=== PATIENT | female | born 1990 | race Caucasian/White ===

== ENCOUNTER → 2018-03-13 | Outpatient (CLI) | payer SELFPAY ==
[2018-03-13 18:20] LABS: A TYPE INFLUENZA AG NEGATIVE (NEGATIVE); B INFLUENZA AG NEGATIVE (NEGATIVE)
--- NOTE | 2018-03-13 18:38 | RADIOLOGY REPORT (SQ) ---
EXAM DESCRIPTION: CHEST 2 VIEWS COMPLETED DATE/TIME: 03/13/2018 6:15 pm REASON FOR STUDY: R05 COUGH COMPARISON: None. EXAM PARAMETERS: NUMBER OF VIEWS: two views TECHNIQUE: Digital Frontal and Lateral radiographic views of the chest acquired. RADIATION DOSE: NA LIMITATIONS: none FINDINGS: LUNGS AND PLEURA: No opacities, masses or pneumothorax. No pleural effusion. MEDIASTINUM AND HILAR STRUCTURES: No masses or contour abnormalities. HEART AND VASCULAR STRUCTURES: Heart normal size. No evidence for failure. BONES: No acute findings. HARDWARE: None in the chest. OTHER: No other significant finding. IMPRESSION: NO ACUTE RADIOGRAPHIC FINDING IN THE CHEST. TECHNICAL DOCUMENTATION: JOB ID: [id number] [employer]- All Rights Reserved Reading location - IP/workstation name: [email or web address]
== END ==
LOC: LAB 17:32
PROVIDERS: ATTEND Nurse Practitioner Family
DX: R50.9 Fever, unspecified (principal); R05 Cough
CPT/HCPCS: 71046; 87804

== ENCOUNTER 2018-05-31 16:02 | Emergency (ER) | payer OTHER ==
[2018-05-31] MEDS ORDERED: LIDOCAINE 4%/TETRACAINE 0.5%/EPI 0.18% 5 ML TOPICAL SOLN TOP ONE (19:00)
[2018-05-31] MEDS ORDERED: HYDROCODONE/ACETAMINOPHEN 5-325 MG TABLET PO ONE (19:00)
--- NOTE | 2018-05-31 19:01 | ER Document Report ---
ED Medical Screen (RME) - General Chief Complaint: Laceration Stated Complaint: KNEE INJURY Time Seen by Provider: 05/31/18 18:54 Mode of Arrival: Ambulatory Information source: Patient, Parent TRAVEL OUTSIDE OF THE [place] IN LAST 30 DAYS: No - HPI Patient complains to provider of: Knee pain Onset: Other - This 27-year-old female presented after falling onto her knee with a toy of her daughter's which stabbed her in the knee thereafter. She was able ambulate thereafter without any assistance, she had some pain but because the toy had stuck into her knee she was concerned it was more serious prompting her to seek care at the emergency room. - Related Data Allergies/Adverse Reactions: amoxicillin Allergy (Verified 05/31/18 16:03) Sulfa (Sulfonamide Antibiotics) Allergy (Verified 05/31/18 16:03) Past Medical History - General Information source: Patient - Social History Cigarette use (# per day): Yes Chew tobacco use (# tins/day): No Frequency of alcohol use: None Drug Abuse: None Review of Systems - Review of Systems -: Yes All other systems reviewed and negative Physical Exam - Vital signs Vitals: Temp Pulse Resp BP Pulse Ox 98.5 F 89 14 130/81 H 97 05/31/18 16:07 05/31/18 16:07 05/31/18 16:07 05/31/18 16:07 05/31/18 16:07 Interpretation: Normal - General General appearance: Appears well, Alert - HEENT Head: Normocephalic, Atraumatic Eyes: Normal Pupils: PERRL - Respiratory Respiratory status: No respiratory distress Chest status: Nontender Breath sounds: Normal Chest palpation: Normal - Cardiovascular Rhythm: Regular Heart sounds: Normal auscultation Murmur: No - Abdominal Inspection: Normal Distension: No distension Bowel sounds: Normal Tenderness: Nontender Organomegaly: No organomegaly - Back Back: Normal, Nontender - Extremities General upper extremity: Normal inspection, Nontender, Normal color, Normal ROM, Normal temperature Knee: Other - The lower extremities are symmetric, the hips have normal range of motion, the right knee demonstrates a slight area abraded just inferior to the patella horizontally with a small gouge which is 1 cm in length which does not penetrate the deep tissues. - Neurological Neuro grossly intact: Yes Cognition: Normal Orientation: AAOx4 Caitie Coma Scale Eye Opening: Spontaneous [place] Coma Scale Verbal: Oriented Caitie Coma Scale Motor: Obeys Commands Caitie Coma Scale Total: 15 Speech: Normal Motor strength normal: LUE, RUE, LLE, RLE Sensory: Normal - Psychological Associated symptoms: Normal affect, Normal mood - Skin Skin Temperature: Warm Skin Moisture: Dry Skin Color: Normal Course - Re-evaluation Re-evalutation: 27-year-old female with superficial abrasion to the patella of the right knee. Let was applied to this. Patient was given some narcotic analgesia. Thereafter in a well lit room the wound was copiously irrigated, the base was probed, there is no deep tissue violation, the depth was minimal. The patient was offered both sutures as well as skin glue. She opted for skin glue for ease and space. The wound was subsequently repaired. 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 Wrote her a prescription such that she would not have to revisit the emergency department if she developed some changes but that in case she were to need it to be filled she needed to be seen again. - Vital Signs Vital signs: Temp Pulse Resp BP Pulse Ox 99.0 F 68 16 105/67 98 05/31/18 20:44 05/31/18 20:44 05/31/18 20:44 05/31/18 20:44 05/31/18 20:44 Procedures - Laceration/Wound Repair Right Knee Time completed: 20:14 Wound length (cm): 1 Wound's Depth, Shape: Superficial Anesthetic type: 1% Lidocaine w/epi Wound explored: Clean, No foreign body removed Irrigated w/ Saline (mLs): 2,000 Wound Debrided: Minimal Wound Repaired With: Dermabond Doctor's Discharge - Discharge Clinical Impression: Laceration Knee injury Qualifiers: Encounter type: initial encounter Laterality: right Qualified Code(s): S89.91XA - Unspecified injury of right lower leg, initial encounter Fall Qualifiers: Encounter type: initial encounter Qualified Code(s): W19.XXXA - Unspecified fall, initial encounter Condition: Good Disposition: HOME, SELF-CARE Instructions: Laceration Care ([facility]), Soap Cleansing ([facility]) Additional Instructions: You were seen today in the emergency department for the cut to your right knee. You had evaluation including a physical exam. The laceration on your knee was repaired utilizing glue. This glue will fall off eventually on its own. Keep this dry for the next 24 hours. Then keep it covered with a bandage for the days thereafter. Use the antibiotic only if necessary. Prescriptions: Ibuprofen [Motrin 600 mg Tablet] 600 mg PO Q8HP PRN #90 tablet PRN Reason: Acetaminophen [8Hr Arthritis Pain] 650 mg PO Q6 #40 tablet.er Clindamycin HCl 300 mg PO TID #21 capsule Hydrocodone/Acetaminophen [[place] 5-325 mg Tablet] 1 tab PO Q8 PRN #4 tablet PRN Reason: Referrals: YASH ROSSI FNP-C [Primary Care Provider] - Follow up as needed
[2018-05-31 20:52] VITALS: BP 105/67
== END 2018-05-31 20:50 | disposition home or self-care (01) ==
LOC: ER 16:02
DX: S80.211A Abrasion, right knee, initial encounter (principal); M25.561 Pain in right knee; W00.0XXA Fall on same level due to ice and snow, initial encounter; F17.210 Nicotine dependence, cigarettes, uncomplicated; Z88.0 Allergy status to penicillin; Z88.2 Allergy status to sulfonamides; Z86.14 Personal history of Methicillin resistant Staphylococcus aureus infection
CPT/HCPCS: 99282; 12001; J3490

== ENCOUNTER 2018-09-10 11:16 | Emergency (ER) | payer OTHER ==
[2018-09-10] MEDS ORDERED: LIDOCAINE 2% VISCOUS SOLN 20 ML UDCUP PO ONE (11:53)
[2018-09-10] MEDS ORDERED: MAG HYDROX/AL HYDROX/SIMETH SUSP 30 ML UDCUP PO ONE (11:53)
[2018-09-10] MEDS ORDERED: ONDANSETRON HCL INJ/PF 4 MG/2 ML SDV IV ONE (11:53)
[2018-09-10] MEDS ORDERED: NORMAL SALINE 1000 ML 1,000 ML IV ONE (11:53)
[2018-09-10] MEDS ORDERED: METOCLOPRAMIDE HCL ORAL SOLN 10 MG/10 ML UDCUP PO ONE (11:53)
--- NOTE | 2018-09-10 12:00 | ER Document Report ---
ED General - General Chief Complaint: Epigastric Pain Stated Complaint: ABDOMINAL PAIN Time Seen by Provider: 09/10/18 11:49 Primary Care Provider: YASH ROSSI FNP-C [Primary Care Provider] - Follow up as needed TRAVEL OUTSIDE OF THE [place] IN LAST 30 DAYS: No - HPI Notes: Patient is a 27-year-old female with no significant past medical history who presents the emergency department complaining of epigastric abdominal pain with associated nausea and vomiting that began yesterday. Patient states the pain will radiate into her back. She has had decreased p.o. intake recently. She is otherwise urinating normally and having loose stool which is relatively normal for her. Patient has a history of a . P.o. intake does increase her epigastric pain. No other concerns or complaints at this time. Denies any headache, fever, neck pain, URI, sore throat, chest pain, palpitations, syncope, cough, shortness of breath, wheeze, dyspnea, urinary retention, dysuria, hematuria, or rash. - Related Data Allergies/Adverse Reactions: latex [Latex] Allergy (Severe, Verified 09/10/18 11:20) Severe swelling amoxicillin Allergy (Verified 09/10/18 11:20) Sulfa (Sulfonamide Antibiotics) Allergy (Verified 09/10/18 11:20) Past Medical History - Social History Smoking Status: Current Some Day Smoker Frequency of alcohol use: None Drug Abuse: None Family History: Arthritis, Malignancy, DM, Hyperlipidemia, Hypertension Patient has suicidal ideation: No Patient has homicidal ideation: No - Past Medical History Cardiac Medical History: Denies: Hx Coronary Artery Disease, Hx Heart Attack, Hx Hypertension Pulmonary Medical History: Reports: Hx Bronchitis - 05/2011 Denies: Hx Asthma, Hx COPD, Hx Pneumonia Neurological Medical History: Denies: Hx Cerebrovascular Accident, Hx Seizures Renal/ Medical History: Denies: Hx Kidney Stones, Hx Ovarian Cysts, Hx Peritoneal Dialysis, Hx Pelvic Inflammatory Disease Malignancy Medical History: Denies: Hx Breast Cancer, Hx Cervical Cancer, Hx Ov harish Cancer GI Medical History: Reports: Hx Gastroesophageal Reflux Disease. Denies: Hx Hiatal Hernia, Hx Ulcer Musculoskeletal Medical History: Denies Hx Arthritis Psychiatric Medical History: Reports: Hx Anxiety, Hx Attention Deficit Hyperactivity Disorder Denies: Hx Bipolar Disorder, Hx Depression, Hx Post Traumatic Stress Disorder, Hx Schizophrenia Past Surgical History: Reports: Hx Section - x2, Hx Myringotomy, Hx Tonsillectomy - Immunizations Immunizations up to date: Yes Hx Diphtheria, Pertussis, Tetanus Vaccination: Yes - 08/20/09 Review of Systems - Review of Systems -: Yes All other systems reviewed and negative Physical Exam - Vital signs Vitals: Temp Pulse Resp BP Pulse Ox 98.3 F 74 17 134/92 H 97 09/10/18 11:30 09/10/18 11:30 09/10/18 11:30 09/10/18 11:30 09/10/18 11:30 - Notes Notes: PHYSICAL EXAMINATION: GENERAL: Well-appearing, well-nourished and in no acute distress. HEAD: Atraumatic, normocephalic. EYES: Pupils equal round and reactive to light, extraocular movements intact, sclera anicteric, conjunctiva are normal. ENT: Nares patent and without discharge. oropharynx clear without exudates. No tonsilar hypertrophy or erythema. Moist mucous membranes. NECK: Normal range of motion, supple without lymphadenopathy LUNGS: Breath sounds clear to auscultation bilaterally and equal. No wheezes rales or rhonchi. HEART: Regular rate and rhythm without murmurs, rubs, gallops. ABDOMEN: Soft, nondistended abdomen. No guarding, no rebound. Normal bowel sounds present. No CVA tenderness bilaterally. + epigastric tenderness to palp. Musculoskeletal: FROM to passive/active. Strength 5+/5. Extremities: No cyanosis, clubbing, or edema b/l. Peripheral pulses 2+. Capillary refill less than 3 seconds. NEUROLOGICAL: Normal speech, normal gait. PSYCH: Normal mood, normal affect. SKIN: Warm, Dry, normal turgor, no rashes or lesions noted. Course - Re-evaluation Re-evalutation: 09/10/18 Patient is an afebrile, well-hydrated, 27-year-old female who presents to the emergency department with epigastric abdominal pain, unspecified. Vitals are acceptable without significant tachycardia, tachypnea, or hypoxia. PE is otherwise unremarkable. CBC, CMP, lipase, urinalysis, hCG unremarkable. Right upper quadrant ultrasound unremarkable. CXR unremarkable. Dr. Verdin also eval'd the CXR for free air (neg) and agrees with dispo. No further labs or imaging warranted. Patient is nontoxic-appearing and is able to tolerate p.o. Low suspicion/risk for acute appendicitis, bowel obstruction, acute cholecystitis, acute cholangitis, perforated diverticulitis, incarcerated hernia, pancreatitis, perforated ulcer, peritonitis, sepsis, pelvic inflammatory disease, ectopic , tubo-ovarian abscess, ovarian torsion, or other systemic emergent condition at this time. Patient is aware that her condition can change from initial presentation and she needs to monitor symptoms closely and seek medical attention if any acute changes. Conservative measures otherwise for symptoms. Recheck with your PCM in 2-3 days. Consider consult with a relationship advisor. Return to the ED with any worsening/concerning symptoms otherwise as reviewed in discharge. Patient is in agreement. - Vital Signs Vital signs: Temp Pulse Resp BP Pulse Ox 98.3 F 74 17 134/92 H 97 09/10/18 11:30 09/10/18 11:30 09/10/18 11:30 09/10/18 11:30 09/10/18 11:30 - Laboratory Result Diagrams: 09/10/18 12:12 09/10/18 12:12 Laboratory results interpreted by me: 09/10/18 17:32 Urine Protein 30 H Urine Ketones 80 H Urine Urobilinogen 2.0 H Discharge - Discharge Clinical Impression: Epigastric abdominal pain Condition: Stable Disposition: HOME, SELF-CARE Instructions: Evaluation of Upper Abdominal Pain ([facility]) Additional Instructions: Maintain adequate fluid and food intake [place] diet ([employer] Bananas, rice, apples, toast, etc Zofran as needed tylenol if needed Monitor for any worsening symptoms Make sure you are staying hydrated enough to urinate and have normal BM's Recheck with your PCM in 2-3 days Consider consult with Gastroenterology for ongoing/worsening symptoms Return to the ED with any worsening symptoms and/or development of fever, headache, chest pain, palpitations, syncope, shortness of breath, trouble breathing, abdominal pain, n/v/d, blood in stool/urine, weakness, or other worsening symptoms that are concerning to you. Prescriptions: Hydrocodone/Acetaminophen [[place] 5-325 mg Tablet] 1 tab PO BID PRN #6 tablet PRN Reason: Omeprazole 20 mg PO DAILY #30 tablet. Ondansetron [Zofran Odt 4 mg Tablet] 1 - 2 tab PO Q4H PRN #15 tab.rapdis PRN Reason: For Nausea/Vomiting Sucralfate [Carafate] 1 gm PO BID #100 ml Forms: Elevated Blood Pressure Referrals: YASH ROSSI FNP-C [Primary Care Provider] - Follow up as needed
[2018-09-10 13:03] LABS: ABSOLUTE LYMPHOCYTES (AUTO) 1.7 10^3/uL (0.5-4.7); ABSOLUTE MONOCYTES (AUTO) 0.3 10^3/uL (0.1-1.4); ABSOLUTE NEUT (AUTO) 6.2 10^3/uL (1.7-8.2); BASOPHILS % (AUTO) 0.2 % (0-2); EOSINOPHILS % (AUTO) 0.5 % (0-6); HEMATOCRIT 44.5 % (36.0-47.0); HEMOGLOBIN 15.5 g/dL (12.0-15.5); LYMPHOCYTES % (AUTO) 20.6 % (13-45); MEAN CORPUSCULAR HEMOGLOBIN 32.9 pg (27.0-33.4); MEAN CORPUSCULAR HGB CONC 34.7 g/dL (32.0-36.0); MEAN CORPUSCULAR VOLUME 95 fl (80-97); MONOCYTES % (AUTO) 3.4 % (3-13); PLATELET COUNT 296 10^3/uL (150-450); RED CELL DISTRIBUTION WIDTH 12.4 % (11.5-14.0); SEGMENTED NEUTROPHILS % (AUTO) 75.3 % (42-78); TOTAL CELLS COUNTED % (AUTO) 100 %; WHITE BLOOD COUNT 8.3 10^3/uL (4.0-10.5)
[2018-09-10 13:21] LABS: ALANINE AMINOTRANSFERASE 39 U/L (9-52); ALBUMIN 4.4 g/dL (3.5-5.0); ALKALINE PHOSPHATASE 71 U/L (38-126); ANION GAP 11 (5-19); ASPARTATE AMINO TRANSFERASE 24 U/L (14-36); BILIRUBIN,DIRECT 0.4 mg/dL (0.0-0.4); BILIRUBIN,TOTAL 0.8 mg/dL (0.2-1.3); BLOOD UREA NITROGEN 8 mg/dL (7-20); CALCIUM 9.8 mg/dL (8.4-10.2); CARBON DIOXIDE 23 mmol/L (22-30); CHLORIDE 106 mmol/L (98-107); GLUCOSE 86 mg/dL (75-110); LIPASE 76.5 U/L (23-300); POTASSIUM 4.3 mmol/L (3.6-5.0); SODIUM 139.8 mmol/L (137-145); TOTAL PROTEIN 7.7 g/dL (6.3-8.2)
[2018-09-10] MEDS ORDERED: KETOROLAC TROMETHAMINE INJ/PF 30 MG/1 ML SDV IV ONE (13:46)
[2018-09-10] MEDS ORDERED: FAMOTIDINE 20 MG TABLET PO ONE (13:47)
--- NOTE | 2018-09-10 16:19 | RADIOLOGY REPORT (SQ) ---
EXAM DESCRIPTION: U/S ABDOMEN LIMITED W/O DOP COMPLETED DATE/TIME: 09/10/2018 3:43 pm REASON FOR STUDY: epigastric pain, n/v COMPARISON: None. TECHNIQUE: Dynamic and static grayscale images acquired of the abdomen and recorded on PACS. Additio nal selected color Doppler and spectral images recorded. LIMITATIONS: None. FINDINGS: PANCREAS: No masses. No peripancreatic edema or fluid collections. LIVER: Echotexture is coarse with increased echogenicity consistent with fatty infiltration. LIVER VASCULATURE: Normal directional flow of the main portal vein and hepatic veins. GALLBLADDER: No stones. Normal wall thickness. No pericholecystic fluid. ULTRASOUND-DETECTED COREAS'S SIGN: Negative. INTRAHEPATIC DUCTS AND COMMON DUCT: CBD and intrahepatic ducts normal caliber. No filling defects. INFERIOR VENA CAVA: Normal flow. AORTA: No aneurysm. RIGHT KIDNEY: Normal size. Normal echogenicity. No solid or suspicious masses. No hydronephros is. No calcifications. PERITONEAL AND RIGHT PLEURAL SPACE: No ascites or effusions. OTHER: No other significant finding. IMPRESSION: FATTY INFILTRATION OF THE LIVER. OTHERWISE NORMAL RIGHT UPPER QUADRANT ULTRASOUND. TECHNICAL DOCUMENTATION: JOB ID: [id number] [employer]- All Rights Reserved Reading location - IP/workstation name: [email or web address]
[2018-09-10 18:16] LABS: AMORPHOUS SEDIMENT,URINE TRACE /HPF; APPEARANCE,URINE SLIGHTLY-CLOUDY; BILIRUBIN,URINE NEGATIVE (NEGATIVE); COLOR,URINE AMBER; GLUCOSE, URINE NEGATIVE (NEGATIVE); KETONES,URINE 80 mg/dL (NEGATIVE); LEUKOCYTE ESTERASE,URINE NEGATIVE (NEGATIVE); NITRITE,URINE NEGATIVE (NEGATIVE); PROTEIN,URINE 30 mg/dL (NEGATIVE); URINE SPECIFIC GRAVITY 1.028
[2018-09-10] MEDS ORDERED: MORPHINE SULFATE 10 MG/ML INJ IV ONE (18:54)
[2018-09-10 19:55] VITALS: BP 128/74
--- NOTE | 2018-09-10 20:05 | RADIOLOGY REPORT (SQ) ---
EXAM DESCRIPTION: XR CHEST 1 VIEW COMPLETED DATE/TME: 09/10/2018 18:54 CLINICAL HISTORY: 27 years, Female, epigastric pain Findings: Heart is not enlarged. Lungs are clear. No pneumothorax. No pleural effusions. IMPRESSION: No acute disease.
== END 2018-09-10 19:54 | disposition home or self-care (01) ==
LOC: ER 11:16
DX: R10.13 Epigastric pain (principal); R11.2 Nausea with vomiting, unspecified; M54.9 Dorsalgia, unspecified; R63.0 Anorexia; F17.200 Nicotine dependence, unspecified, uncomplicated
CPT/HCPCS: 99284; 96361; 96374; 96375; 36415; 83690; 85025; 81025; 80053; 81001; 71045; 76705; J3490; J1885; J2270; J2405; J7030

== ENCOUNTER 2019-07-03 10:51 | Emergency (ER) | payer SELFPAY ==
--- NOTE | 2019-07-03 12:34 | ER Document Report ---
ED Medical Screen (RME) - General Chief Complaint: Abscess Stated Complaint: ABSCESS Time Seen by Provider: 07/03/19 12:30 Primary Care Provider: YASH ROSSI FNP-C [Primary Care Provider] - Follow up as needed Notes: HPI: 28-year-old female presenting for an abscess in the left suprapubic region that began 3 to 4 days ago. States she had a fever last night. States that she is having increasing redness spreading from the area. Patient does have prior history of skin abscesses I have greeted and performed a rapid initial assessment of this patient. A comprehensive ED assessment and evaluation of the patient, analysis of test results and completion of the medical decision making process will be conducted by additional ED providers PHYSICAL EXAMINATION: With female medical front desk specialist present GENERAL: Well-appearing, well-nourished and in no acute distress. HEAD: Atraumatic, normocephalic. EYES: sclera anicteric, conjunctiva are normal. ENT: Moist mucous membranes. NECK: Normal range of motion LUNGS: Normal work of breathing HEART: 2+ radial pulses bilaterally ABD: limited by positioning for exam in triage. EXTREMITIES: no pitting or edema. No cyanosis. NEUROLOGICAL: No focal neurological deficits. Moves all extremities spontaneously and on command. PSYCH: Normal mood, normal affect. SKIN: Warm, Dry, normal turgor, indurated mildly tender area in the left suprapubic region with surrounding cellulitic change TRAVEL OUTSIDE OF THE [place] IN LAST 30 DAYS: No - Related Data Allergies/Adverse Reactions: latex [Latex] Allergy (Severe, Verified 07/03/19 12:26) Severe swelling amoxicillin Allergy (Verified 07/03/19 12:26) Sulfa (Sulfonamide Antibiotics) Allergy (Verified 07/03/19 12:26) Past Medical History - Social History Family history: Arthritis, Malignancy, DM, Hyperlipidemia, Hypertension - Past Medical History Cardiac Medical History: Denies: Hx Coronary Artery Disease, Hx Heart Attack, Hx Hypertension Pulmonary Medical History: Reports: Hx Bronchitis - 05/2011 Denies: Hx Asthma, Hx COPD, Hx Pneumonia Neurological Medical History: Denies: Hx Cerebrovascular Accident, Hx Seizures Renal/ Medical History: Denies: Hx Kidney Stones, Hx Ovarian Cysts, Hx Peritoneal Dialysis, Hx Pelvic Inflammatory Disease Malignancy Medical History: Denies: Hx Breast Cancer, Hx Cervical Cancer, Hx Ovarian Cancer GI Medical History: Reports: Hx Gastroesophageal Reflux Disease. Denies: Hx Hiatal Hernia, Hx Ulcer Musculoskeltal Medical History: Denies Hx Arthritis Psychiatric Medical History: Reports: Hx Anxiety, Hx Attention Deficit Hyperactivity Disorder Denies: Hx Bipolar Disorder, Hx Depression, Hx Post Traumatic Stress Disorder, Hx Schizophrenia Past Surgical History: Reports: Hx Section - x2, Hx Myringotomy, Hx Tonsillectomy - Immunizations Immunizations up to date: Yes Hx Diphtheria, Pertussis, Tetanus Vaccination: Yes - 08/20/09 Physical Exam - Vital signs Vitals: Temp Pulse Resp BP Pulse Ox 98.6 F 72 17 117/64 99 07/03/19 12:15 07/03/19 12:15 07/03/19 12:15 07/03/19 12:15 07/03/19 12:15 Course - Vital Signs Vital signs: Temp Pulse Resp BP Pulse Ox 98.6 F 72 17 117/64 99 07/03/19 12:15 07/03/19 12:15 07/03/19 12:15 07/03/19 12:15 07/03/19 12:15 Doctor's Discharge - Discharge Referrals: YASH ROSSI FNP-C [Primary Care Provider] - Follow up as needed
[2019-07-03] MEDS ORDERED: CLINDAMYCIN HCL 150 MG CAPSULE PO ONE (14:52)
[2019-07-03] MEDS ORDERED: HYDROCODONE/ACETAMINOPHEN 5-325 MG TABLET PO ONE (14:52)
--- NOTE | 2019-07-03 14:55 | ER Document Report ---
HPI - HPI Patient complains to provider of: Skin infection Time Seen by Provider: 07/03/19 12:30 Onset: Other - 4 days Onset/Duration: Worse Quality of pain: Sharp Pain Level: 4 Context: Patient states she shaved a week ago and developed a hair bump. Patient states that she attempted to squeeze on the area and did not have any drainage from lesion. Patient states area has gradually become more tender, swollen and erythematous. Patient reports fever yesterday of 101. No fever today. Associated Symptoms: Fever - Yesterday Exacerbated by: Movement Relieved by: Denies Similar symptoms previously: Yes Recently seen / treated by doctor: No - ROS ROS below otherwise negative: Yes Systems Reviewed and Negative: Yes All other systems reviewed and negative - CONSTITUTIONAL Constitutional: REPORTS: Fever, Chills - EENT EENT: DENIES: Sore Throat, Ear Pain, Eye problems - NEURO Neurology: DENIES: Headache - RESPIRATORY Respiratory: DENIES: Trouble Breathing, Coughing - GASTROINTESTINAL Gastrointestinal: DENIES: Nausea, Patient vomiting - URINARY Urinary: DENIES: Dysuria, Urgency, Frequency - REPRODUCTIVE LMP: [id number] Reproductive: DENIES: : - MUSCULOSKELETAL Musculoskeletal: DENIES: Extremity pain - DERM Skin Color: Erythema Notes: Abscess Past Medical History - General Information source: Patient - Social History Smoking Status: Former Smoker Chew tobacco use (# tins/day): No Frequency of alcohol use: None Drug Abuse: None Occupation: [employer] Family History: Arthritis, Malignancy, DM, Hyperlipidemia, Hypertension Patient has suicidal ideation: No Patient has homicidal ideation: No Pulmonary Medical History: Reports: Hx Bronchitis - 05/2011 GI Medical History: Reports: Hx Gastroesophageal Reflux Disease, Hx Irritable Bowel Psychiatric Medical History: Reports: Hx Anxiety, Hx Attention Deficit H yperactivity Disorder Past Surgical History: Reports: Hx Section - x2, Hx Myringotomy, Hx Tonsillectomy - Immunizations Immunizations up to date: Yes Hx Diphtheria, Pertussis, Tetanus Vaccination: Yes - 08/20/09 Vertical Provider Document - CONSTITUTIONAL Agree With Documented VS: Yes Exam Limitations: No Limitations General Appearance: WD/WN, No Apparent Distress - INFECTION CONTROL TRAVEL OUTSIDE OF THE [place] IN LAST 30 DAYS: No - HEENT HEENT: Atraumatic, Normocephalic - NECK Neck: Normal Inspection - RESPIRATORY Respiratory: Breath Sounds Normal, No Respiratory Distress - CARDIOVASCULAR Cardiovascular: Regular Rate, Regular Rhythm - GI/ABDOMEN Gastrointestinal: Abdomen Soft, Abdomen Non-Tender - BACK Back: Normal Inspection - MUSCULOSKELETAL/EXTREMETIES Musculoskeletal/Extremeties: MOUSTAPHA DAVIS - NEURO Level of Consciousness: Awake, Alert, Appropriate Motor/Sensory: No Motor Deficit - DERM Integumentary: Warm, Dry, Abscess - Erythema to left pubic area with central tender indurated lesion worrisome for abscess Course - Vital Signs Vital signs: Temp Pulse Resp BP Pulse Ox 98.6 F 72 17 117/64 99 07/03/19 12:15 07/03/19 12:15 07/03/19 12:15 07/03/19 12:15 07/03/19 12:15 Procedures - Incision and Drainage Left Groin Type: Simple Anesthetic type: 1% Lidocaine Blade size: 11 I&D procedure: Betadine prep applied Incision Method: Incision made by scalpel Amount/type of drainage: Moderate amount of purulent drainage Adult Front & Back picture: 1 - Incision for abscess Discharge - Discharge Clinical Impression: Abscess, Encounter for incision and drainage procedure Condition: Stable Disposition: HOME, SELF-CARE Instructions: Abscess ([facility]), Post Incision and Drainage, Clindamycin ([facility]), Oral Narcotic Medication ([facility]), Warm Packs ([facility]) Additional Instructions: Return immediately for any new or worsening symptoms Followup with your primary care provider, call tomorrow to make a followup appointment Apply warm compresses frequently to the area Prescriptions: Clindamycin HCl 300 mg PO QID #28 capsule Naproxen [Naprosyn 250 Nmg Tablet] 1 tab PO BID #14 tablet Hydrocodone/Acetaminophen [[place] 5-325 mg Tablet] 1 tab PO Q6 PRN #12 tablet PRN Reason: Forms: Return to Work Referrals: YASH ROSSI FNP-C [NURSE PRACTITIONER] - Follow up as needed
[2019-07-03 16:12] VITALS: BP 105/66
== END 2019-07-03 16:16 | disposition home or self-care (01) ==
LOC: ER 10:51
PROC: 0H97XZZ Drainage of Abdomen Skin, External Approach (ICD-10-PCS; principal; 2019-07-03)
DX: L02.214 Cutaneous abscess of groin (principal); L08.9 Local infection of the skin and subcutaneous tissue, unspecified; R50.9 Fever, unspecified; Z87.891 Personal history of nicotine dependence
CPT/HCPCS: 99283

== ENCOUNTER 2019-10-16 10:39 | Emergency (ER) | payer OTHER ==
[2019-10-16 11:23] LABS: ABSOLUTE LYMPHOCYTES (AUTO) 1.4 10^3/uL (0.5-4.7); ABSOLUTE MONOCYTES (AUTO) 0.5 10^3/uL (0.1-1.4); ABSOLUTE NEUT (AUTO) 6.7 10^3/uL (1.7-8.2); BASOPHILS % (AUTO) 0.2 % (0-2); EOSINOPHILS % (AUTO) 0.3 % (0-6); HEMOGLOBIN 14.9 g/dL (12.0-15.5); LYMPHOCYTES % (AUTO) 16.1 % (13-45); MEAN CORPUSCULAR HGB CONC 35.4 g/dL (32.0-36.0); MEAN CORPUSCULAR VOLUME 96 fl (80-97); MONOCYTES % (AUTO) 5.8 % (3-13); PLATELET COUNT 283 10^3/uL (150-450); RED BLOOD COUNT 4.38 10^6/uL (3.72-5.28); RED CELL DISTRIBUTION WIDTH 12.2 % (11.5-14.0); SEGMENTED NEUTROPHILS % (AUTO) 77.6 % (42-78); TOTAL CELLS COUNTED % (AUTO) 100 %; WHITE BLOOD COUNT 8.7 10^3/uL (4.0-10.5)
[2019-10-16 11:33] LABS: ALBUMIN 4.5 g/dL (3.5-5.0); ALKALINE PHOSPHATASE 70 U/L (38-126); ANION GAP 9 (5-19); ASPARTATE AMINO TRANSFERASE 30 U/L (14-36); BILIRUBIN,DIRECT 0.1 mg/dL (0.0-0.4); BILIRUBIN,TOTAL 1.2 mg/dL (0.2-1.3); BLOOD UREA NITROGEN 8 mg/dL (7-20); CALCIUM 9.5 mg/dL (8.4-10.2); CARBON DIOXIDE 26 mmol/L (22-30); CHLORIDE 106 mmol/L (98-107); GLUCOSE 100 mg/dL (75-110); POTASSIUM 4.1 mmol/L (3.6-5.0); TOTAL PROTEIN 7.4 g/dL (6.3-8.2)
--- NOTE | 2019-10-16 11:46 | ER Document Report ---
ED General - General Mode of Arrival: Ambulatory Information source: Patient TRAVEL OUTSIDE OF THE [place] IN LAST 30 DAYS: No <JOSEPH WHITE - Last Filed: 10/16/19 11:45> <POORNIMA LYNNE - Last Filed: 10/16/19 15:41> - General Chief Complaint: Diarrhea Stated Complaint: NAUSEA/VOMITING/DIARRHEA Time Seen by Provider: 10/16/19 11:02 - HPI Notes: Patient complains of abdominal pain diarrhea and vomiting. She states she has inflammatory bowel disease and has chronic diarrhea. However her pain is worse than usual and she does not usually have vomiting. The new symptoms have been present for 2 to 3 days. She states that she was doing a telehealth visit today with her primary care physician and they referred her to the emergency department. She denies any known covert exposures. No cough or congestion. No fevers. Patient's pain is intermittent. It is crampy. It is moderate in intensity. It radiates across her abdomen. (JOSEPH WHITE) - Related Data Allergies/Adverse Reactions: latex [Latex] Allergy (Severe, Verified 07/03/19 12:26) Severe swelling amoxicillin Allergy (Verified 07/03/19 12:26) Sulfa (Sulfonamide Antibiotics) Allergy (Verified 07/03/19 12:26) Past Medical History - General Information source: Patient - Social History Smoking Status: Never Smoker Chew tobacco use (# tins/day): No Frequency of alcohol use: None Drug Abuse: None Family History: Arthritis, Malignancy, DM, Hyperlipidemia, Hypertension Patient has homicidal ideation: No - Past Medical History Cardiac Medical History: Denies: Hx Coronary Artery Disease, Hx Heart Attack, Hx Hypertension Pulmonary Medical History: Reports: Hx Bronchitis - 05/2011 Denies: Hx Asthma, Hx COPD, Hx Pneumonia Neurological Medical History: Denies: Hx Cerebrovascular Accident, Hx Seizures Renal/ Medical History: Denies: Hx Kidney Stones, Hx Ovarian Cysts, Hx Peritoneal Dialysis, Hx Pelvic Inflammatory Disease Malignancy Medical History: Denies: Hx Breast Cancer, Hx Cervical Cancer, Hx Ovarian Cancer GI Medical History: Reports: Hx Gastroesophageal Reflux Disease, Hx Irritable Bowel. Denies: Hx Hiatal Hernia, Hx Ulcer Musculoskeletal Medical History: Denies Hx Arthritis Psychiatric Medical History: Reports: Hx Anxiety, Hx Attention Deficit Hyperactivity Disorder Denies: Hx Bipolar Disorder, Hx Depression, Hx Post Traumatic Stress Disorder, Hx Schizophrenia Past Surgical History: Reports: Hx Section - x2, Hx Myringotomy, Hx Tonsillectomy - Immunizations Immunizations up to date: Yes Hx Diphtheria, Pertussis, Tetanus Vaccination: Yes - 08/20/09 <JOSEPH WHITE - Last Filed: 10/16/19 11:45> Review of Systems - Review of Systems Constitutional: Malaise, Weakness. denies: Chills, Fever Cardiovascular: denies: Chest pain, Palpitations Respiratory: denies: Cough, Short of breath -: Yes All other systems reviewed and negative <JOSEPH WHITE - Last Filed: 10/16/19 11:45> Physical Exam - Vital signs Interpretation: Normal - General General appearance: Appears well, Alert - HEENT Head: Normocephalic, Atraumatic Eyes: Normal Pupils: PERRL - Respiratory Respiratory status: No respiratory distress Chest status: Nontender Breath sounds: Normal Chest palpation: Normal - Cardiovascular Rhythm: Regular Heart sounds: Normal auscultation Murmur: No - Abdominal Inspection: Normal Distension: No distension Bowel sounds: Normal Tenderness: Tender - Moderate diffuse tenderness with voluntary guarding Organomegaly: No organomegaly - Back Back: Normal, Nontender - Extremities General upper extremity: Normal inspection, Nontender, Normal color, Normal ROM, Normal temperature General lower extremity: Normal inspection, Nontender, Normal color, Normal ROM, Normal temperature, Normal weight bearing. No: Sydnie's sign - Neurological Neuro grossly intact: Yes Cognition: Normal Orientation: AAOx4 Caitie Coma Scale Eye Opening: Spontaneous Cait[place] Coma Scale Verbal: Oriented [place] Coma Scale Motor: Obeys Commands Caitie Coma Scale Total: 15 Speech: Normal Motor strength normal: LUE, RUE, LLE, RLE Sensory: Normal - Psychological Associated symptoms: Normal affect, Normal mood - Skin Skin Temperature: Warm Skin Moisture: Dry Skin Color: Normal <JOSEPH WHITE - Last Filed: 10/16/19 11:45> - Vital signs Vitals: Temp 98.6 F 10/16/19 11:27 Course - Laboratory Result Diagrams: 10/16/19 10:55 10/16/19 10:55 <JOSEPH WHITE - Last Filed: 10/16/19 11:45> - Laboratory Result Diagrams: 10/16/19 10:55 10/16/19 10:55 - Diagnostic Test Radiology reviewed: Reports reviewed <POORNIMA LYNNE - Last Filed: 10/16/19 15:41> - Re-evaluation Re-evalutation: 10/16/19 15:36 I assumed care of this patient at the beginning of my shift. In short this is a 28-year-old female with a history of IBS, who came in with typical symptoms but an increase in pain, which she does not have frequently. She was initially seen by Dr. White. She had laboratory investigations and medications as ordered through him. Ultrasound was pending. Ultrasound fails to reveal any acute process. Patient is feeling improved after 2 mg of IV morphine, states sh e does continue to feel nauseated. I did go ahead and order Zofran. She asked for a work excuse. I repeated her abdominal exam, she remains diffusely tender but she did not show any rebound or guarding, no peritoneal signs. She is to follow-up closely with primary care and GI. She is to return to the ED with worsening or new concerning symptoms of any sort. (POORNIMA LYNNE) - Vital Signs Vital signs: Temp Pulse Resp BP Pulse Ox 98.6 F 10/16/19 11:27 - Laboratory Laboratory results interpreted by me: 10/16/19 10:55 MCH 34.0 H - Diagnostic Test Radiology results interpreted by me: 10/16/19 15:37 Abdomen Ultrasound 10/16/19 11:11 IMPRESSION: No acute findings. (POORNIMA LYNNE) Discharge <JOSEPH WHITE - Last Filed: 10/16/19 11:45> <POORNIMA LYNNE - Last Filed: 10/16/19 15:41> - Discharge Clinical Impression: Abdominal pain Qualifiers: Abdominal location: generalized Qualified Code(s): R10.84 - Generalized abdominal pain Condition: Stable Disposition: HOME, SELF-CARE Instructions: Abdominal Pain ([facility]) Additional Instructions: You are being tested for COVID-19. Until your results have returned, you should quarantine yourself at home, and any other family members with which you live. Rest, stay well-hydrated. Follow-up with your primary care provider next week. If you need to return to the ED for further evaluation, which you should do in case of increased pain, fevers, vomiting, or any worsening, please notify them immediately that you are a person under investigation for coronavirus. Forms: Return to Work
[2019-10-16] MEDS ORDERED: MORPHINE SULFATE 10 MG/ML INJ IV ONE (13:59)
--- NOTE | 2019-10-16 14:39 | RADIOLOGY REPORT (SQ) ---
EXAM DESCRIPTION: U/S ABDOMEN LIMITED W/O DOP IMAGES COMPLETED DATE/TIME: 10/16/2019 2:15 pm REASON FOR STUDY: ruq pain COMPARISON: 09/10/2018 TECHNIQUE: Dynamic and static grayscale images acquired of the abdomen and recorded on PACS. Additio nal selected color Doppler and spectral images recorded. LIMITATIONS: None. FINDINGS: PANCREAS: No masses. Visualized pancreatic duct normal caliber. LIVER: No focal masses. Normal size. Mild increased echogenicity stable from prior study. LIVER VASCULATURE: Normal directional flow of the main portal vein and hepatic veins. GALLBLADDER: No stones. Normal wall thickness. No pericholecystic fluid. ULTRASOUND-DETECTED COREAS'S SIGN: Negative. INTRAHEPATIC DUCTS AND COMMON DUCT: CBD and intrahepatic ducts normal caliber. No filling defects. AORTA: No aneurysm. RIGHT KIDNEY: Normal size. Normal echogenicity. No solid or suspicious masses. No hydronephrosis. No calcifications. PERITONEAL AND RIGHT PLEURAL SPACE: No ascites or effusions. OTHER: No other significant findings. IMPRESSION: No acute findings. TECHNICAL DOCUMENTATION: JOB ID: [id number] 2010 [employer]- All Rights Reserved Reading location - IP/workstation name: [email or web address]
[2019-10-16] MEDS ORDERED: ONDANSETRON HCL INJ/PF 4 MG/2 ML SDV IV ONE (15:36)
[2019-10-16] MEDS ORDERED: ONDANSETRON ODT 4 MG TAB (6 TAB/ER DISP) PO PRN (16:47)
[2019-10-16 17:01] VITALS: BP 104/74
== END 2019-10-16 16:55 | disposition home or self-care (01) ==
LOC: ER 10:39
DX: R10.84 Generalized abdominal pain (principal); R19.7 Diarrhea, unspecified; R11.2 Nausea with vomiting, unspecified; K58.0 Irritable bowel syndrome with diarrhea; Z88.1 Allergy status to other antibiotic agents; Z88.2 Allergy status to sulfonamides; Z20.828 Contact with and (suspected) exposure to other viral communicable diseases
CPT/HCPCS: 99284; 96374; 96375; 36415; 84703; 85025; 87635; 80053; 76705; J2270; J2405

== ENCOUNTER 2020-01-13 14:54 | Emergency (ER) | payer OTHER ==
[2020-01-13 15:04] VITALS: BP 120/71
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
[2020-01-13] MEDS ORDERED: OXYCODONE-ACETAMINOPHEN 5-325 MG TABLET PO ONE (17:10)
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
--- NOTE | 2020-01-13 18:32 | RADIOLOGY REPORT (SQ) ---
EXAM DESCRIPTION: CERV SP 4 OR 5 VIEWS IMAGES COMPLETED DATE/TIME: 01/13/2020 5:37 pm REASON FOR STUDY: Pain to neck shoulder upper back left arm COMPARISON: None. NUMBER OF VIEWS: Five views. TECHNIQUE: AP, lateral, obliques and odontoid radiographic images acquired of the cervical spine. LIMITATIONS: None. FINDINGS: MINERALIZATION: Normal. ALIGNMENT: Anatomic. VERTEBRAE: Vertebral bodies of normal height. DISCS: No significant osteophytes or sclerosis. Disc height maintained. FORAMINA: No osteophytes or foraminal narrowing. LATERAL AND POSTERIOR ELEMENTS: Facets, lateral masses and spinous processes without significant find ings. HARDWARE: None in the spine. SOFT TISSUES: No masses or calcifications. Lung apices clear. OTHER: No other significant finding. IMPRESSION: NO SIGNIFICANT RADIOGRAPHIC FINDING IN THE CERVICAL SPINE. TECHNICAL DOCUMENTATION: JOB ID: [id number] 2010 [employer]- All Rights Reserved Reading location - IP/workstation name: [email or web address]
--- NOTE | 2020-01-13 18:33 | RADIOLOGY REPORT (SQ) ---
EXAM DESCRIPTION: CLAVICLE LEFT IMAGES COMPLETED DATE/TIME: 01/13/2020 5:37 pm REASON FOR STUDY: Pain to left clavicle COMPARISON: None. NUMBER OF VIEWS: Two views. TECHNIQUE: Frontal and angled images were acquired of the left clavicle. LIMITATIONS: None. FINDINGS: MINERALIZATION: Normal. BONES: No acute fracture or dislocation. No worrisome bone lesions. SOFT TISSUES: No obvious swelling or foreign body. OTHER: No other significant finding. IMPRESSION: NEGATIVE STUDY OF THE LEFT CLAVICLE. NO RADIOGRAPHIC EVIDENCE OF ACUTE INJURY. TECHNICAL DOCUMENTATION: JOB ID: [id number] 2010 [employer]- All Rights Reserved Reading location - IP/workstation name: [email or web address]
== END 2020-01-13 18:54 | disposition home or self-care (01) ==
LOC: ER 14:54
DX: S40.012A Contusion of left shoulder, initial encounter (principal); S40.022A Contusion of left upper arm, initial encounter; S16.1XXA Strain of muscle, fascia and tendon at neck level, initial encounter; S29.012A Strain of muscle and tendon of back wall of thorax, initial encounter; M25.522 Pain in left elbow; V49.40XA Driver injured in collision with unspecified motor vehicles in traffic accident, initial encounter; Z91.041 Radiographic dye allergy status; Z88.0 Allergy status to penicillin; Z88.2 Allergy status to sulfonamides
CPT/HCPCS: 36415; 72050; 84703; 99284

== ENCOUNTER 2020-05-02 17:11 | Emergency (ER) | payer SELFPAY ==
[2020-05-02] MEDS ORDERED: RINGERS SOLUTION,LACTATED 1,000 ML IV ONE ×2 (17:39→21:15)
[2020-05-02] MEDS ORDERED: ONDANSETRON HCL INJ/PF 4 MG/2 ML SDV IV ONE ×2 (17:39→21:15)
--- NOTE | 2020-05-02 17:41 | ER Document Report ---
ED Medical Screen (RME) - General Chief Complaint: Nausea/Vomiting/Diarrhea Stated Complaint: NAUSEA/VOMITING/COVID NEG Time Seen by Provider: 05/02/20 17:34 Mode of Arrival: Ambulatory Information source: Patient Notes: HPI; 9-year-old female past medical history significant for IBS presents to the emergency room with persistent nausea, vomiting and abdominal cramping for the past 6 days. Also complains of dysuria. States she started with multiple episodes of diarrhea 2 days ago. States she got tested for Covid on Monday received a negative result on Monday. Denies any COVID-19 exposure. States is unable to tolerate anything p.o. PE: Alert and oriented x3. Mild distress noted. Lungs: Clear to auscultation without rales, rhonchi, wheezes. Heart: Regular rate rhythm without murmurs, rubs, gallops. I have greeted and performed a rapid initial assessment of this patient. A comprehensive ED assessment and evaluation of the patient, analysis of test results and completion of the medical decision making process will be conducted by additional ED providers. I have specifically instructed the patient or family members with the patient to immediately return to any nursing staff should anything change in the patient's condition or with their chief complaint. TRAVEL OUTSIDE OF THE [place] IN LAST 30 DAYS: No - Related Data Allergies/Adverse Reactions: latex [Latex] Allergy (Severe, Verified 05/02/20 17:33) Severe swelling amoxicillin Allergy (Verified 05/02/20 17:33) Sulfa (Sulfonamide Antibiotics) Allergy (Verified 05/02/20 17:33) Past Medical History - Social History Family history: Arthritis, Malignancy, DM, Hyperlipidemia, Hypertension - Past Medical History Cardiac Medical History: Denies: Hx Coronary Artery Disease, Hx Heart Attack, Hx Hypertension Pulmonary Medical History: Reports: Hx Bronchitis - 05/2011 Denies: Hx Asthma, Hx COPD, Hx Pneumonia Neurological Medical History: Denies: Hx Cerebrovascular Accident, Hx Seizures Renal/ Medical History: Denies: Hx Kidney Stones, Hx Ovarian Cysts, Hx Peritoneal Dialysis, Hx Pelvic Inflammatory Disease Malignancy Medical History: Denies: Hx Breast Cancer, Hx Cervical Cancer, Hx Ovarian Cancer GI Medical History: Reports: Hx Gastroesophageal Reflux Disease, Hx Irritable Bowel. Denies: Hx Hiatal Hernia, Hx Ulcer Musculoskeltal Medical History: Denies Hx Arthritis Psychiatric Medical History: Reports: Hx Anxiety, Hx Attention Deficit Hyperactivity Disorder Denies: Hx Bipolar Disorder, Hx Depression, Hx Post Traumatic Stress Disorder, Hx Schizophrenia Past Surgical History: Reports: Hx Section - x2, Hx Myringotomy, Hx Tonsillectomy - Immunizations Immunizations up to date: Yes Hx Diphtheria, Pertussis, Tetanus Vaccination: Yes - 08/20/09 Physical Exam - Vital signs Vitals: Temp Pulse Resp BP Pulse Ox 98.3 F 91 16 130/68 H 96 05/02/20 17:13 05/02/20 17:13 05/02/20 17:13 05/02/20 17:13 05/02/20 17:13 Course - Vital Signs Vital signs: Temp Pulse Resp BP Pulse Ox 98.3 F 91 16 130/68 H 96 05/02/20 17:13 05/02/20 17:13 05/02/20 17:13 05/02/20 17:13 05/02/20 17:13
[2020-05-02 18:36] LABS: ABSOLUTE EOSINOPHILS # (AUTO) 0.1 10^3/uL (0.0-0.6); ABSOLUTE LYMPHOCYTES (AUTO) 1.6 10^3/uL (0.5-4.7); ABSOLUTE MONOCYTES (AUTO) 0.4 10^3/uL (0.1-1.4); ABSOLUTE NEUT (AUTO) 4.7 10^3/uL (1.7-8.2); BASOPHILS % (AUTO) 0.3 % (0-2); HEMATOCRIT 43.5 % (36.0-47.0); HEMOGLOBIN 14.9 g/dL (12.0-15.5); LYMPHOCYTES % (AUTO) 23.6 % (13-45); MEAN CORPUSCULAR HEMOGLOBIN 33.4 pg (27.0-33.4); MEAN CORPUSCULAR HGB CONC 34.3 g/dL (32.0-36.0); MEAN CORPUSCULAR VOLUME 97 fl (80-97); PLATELET COUNT 274 10^3/uL (150-450); RED BLOOD COUNT 4.46 10^6/uL (3.72-5.28); SEGMENTED NEUTROPHILS % (AUTO) 69.1 % (42-78); TOTAL CELLS COUNTED % (AUTO) 100 %; WHITE BLOOD COUNT 6.8 10^3/uL (4.0-10.5)
[2020-05-02 18:44] LABS: APPEARANCE,URINE CLOUDY; BILIRUBIN,URINE NEGATIVE (NEGATIVE); COLOR,URINE AMBER; GLUCOSE, URINE NEGATIVE (NEGATIVE); KETONES,URINE TRACE mg/dL (NEGATIVE); LEUKOCYTE ESTERASE,URINE LARGE (NEGATIVE); NITRITE,URINE NEGATIVE (NEGATIVE); PROTEIN,URINE 30 mg/dL (NEGATIVE); URINE SPECIFIC GRAVITY 1.015; UROBILINOGEN,URINE NEGATIVE mg/dL (<2.0)
[2020-05-02 18:48] LABS: ALBUMIN 4.6 g/dL (3.5-5.0); ALKALINE PHOSPHATASE 53 U/L (38-126); ANION GAP 7 (5-19); ASPARTATE AMINO TRANSFERASE 24 U/L (14-36); BILIRUBIN,DIRECT 0.1 mg/dL (0.0-0.4); BILIRUBIN,TOTAL 0.8 mg/dL (0.2-1.3); BLOOD UREA NITROGEN 12 mg/dL (7-20); CARBON DIOXIDE 30 mmol/L (22-30); CHLORIDE 103 mmol/L (98-107); GLUCOSE 88 mg/dL (75-110); POTASSIUM 4.1 mmol/L (3.6-5.0); TOTAL PROTEIN 7.5 g/dL (6.3-8.2)
--- NOTE | 2020-05-02 21:15 | ER Document Report ---
ED GI/ - General Chief Complaint: Nausea/Vomiting/Diarrhea Stated Complaint: NAUSEA/VOMITING/COVID NEG Time Seen by Provider: 05/02/20 17:34 Primary Care Provider: [facility] [Provider Group] - Follow up as needed Mode of Arrival: Ambulatory TRAVEL OUTSIDE OF THE [place] IN LAST 30 DAYS: No - HPI Notes: 05/03/20 04:06 29-year-old female to the emergency department with complaints of nausea, vomiting, generalized abdominal pain that began over the past several days and has gotten worse. She also admits to diarrhea but she thinks this is associated with her IBS. It is not abnormal for her to have diarrhea. She states that she has had a little bit of frequency with urination and dysuria. She states that she has not been able to stop vomiting today. She states she is not been able to get any fluids or solids down. She is not had anything at home to help with the vomiting. Of note, the patient did have a negative Covid test on Monday of last week. She is not had any symptoms of loss of smell, loss of taste, cough, sore throat, ear pain. - Related Data Allergies/Adverse Reactions: latex [Latex] Allergy (Severe, Verified 05/02/20 17:33) Severe swelling amoxicillin Allergy (Verified 05/02/20 17:33) Sulfa (Sulfonamide Antibiotics) Allergy (Verified 05/02/20 17:33) Past Medical History - General Information source: Patient - Social History Smoking Status: Never Smoker Frequency of alcohol use: Occasional Drug Abuse: None Family History: Arthritis, Malignancy, DM, Hyperlipidemia, Hypertension - Past Medical History Cardiac Medical History: Denies: Hx Coronary Artery Disease, Hx Heart Attack, Hx Hypertension Pulmonary Medical History: Reports: Hx Bronchitis - 05/2011 Denies: Hx Asthma, Hx COPD, Hx Pneumonia Neurological Medical History: Denies: Hx Cerebrovascular Accident, Hx Seizures Renal/ Medical History: Denies: Hx Kidney Stones, Hx Ovarian Cysts, Hx Peritoneal Dialysis, Hx Pelvic Inflammatory Disease Malignancy Medical History: Denies: Hx Breast Cancer, Hx Cervical Cancer, Hx Ovarian Cancer GI Medical History: Reports: Hx Gastroesophageal Reflux Disease, Hx Irritable Bowel. Denies: Hx Hiatal Hernia, Hx Ulcer Musculoskeletal Medical History: Denies Hx Arthritis Psychiatric Medical History: Reports: Hx Anxiety, Hx Attention Deficit Hyperactivity Disorder Denies: Hx Bipolar Disorder, Hx Depression, Hx Post Traumatic Stress Disorder, Hx Schizophrenia Past Surgical History: Reports: Hx Section - x2, Hx Myringotomy, Hx T onsillectomy - Immunizations Immunizations up to date: Yes Hx Diphtheria, Pertussis, Tetanus Vaccination: Yes - 08/20/09 Review of Systems - Review of Systems Constitutional: denies: Chills, Fever EENT: No symptoms reported Cardiovascular: denies: Chest pain, Palpitations, Heart racing, Orthopnea, Dyspnea, Syncope, Dizziness, Lightheaded, Edema Respiratory: denies: Cough, Short of breath Gastrointestinal: Abdominal pain, Diarrhea, Nausea, Vomiting Genitourinary: Burning, Dysuria, Frequency Female Genitourinary: No symptoms reported Musculoskeletal: No symptoms reported Skin: No symptoms reported Hematologic/Lymphatic: No symptoms reported Neurological/Psychological: No symptoms reported -: Yes All other systems reviewed and negative Physical Exam - Vital signs Vitals: Temp Pulse Resp BP Pulse Ox 98.3 F 91 16 130/68 H 96 05/02/20 17:13 05/02/20 17:13 05/02/20 17:13 05/02/20 17:13 05/02/20 17:13 Interpretation: Normal - Notes Notes: PHYSICAL EXAMINATION: GENERAL: Well-appearing, well-nourished and in mild pain distress. Patient holding an empty emesis bag and dry heaving. HEAD: Atraumatic, normocephalic. EYES: Pupils equal round and reactive to light, extraocular movements intact, sclera anicteric, conjunctiva are normal. ENT: nares patent, oropharynx clear without exudates. Moist mucous membranes. NECK: Normal range of motion, supple without lymphadenopathy LUNGS: Breath sounds clear to auscultation bilaterally and equal. No wheezes rales or rhonchi. HEART: Regular rate and rhythm without murmurs ABDOMEN: Soft, there is generalized tenderness to palpation of the abdomen but she seems to be more tender in the left CVA region in the left lower quadrant., normoactive bowel sounds. No guarding, no rebound. No masses appreciated. EXTREMITIES: Normal range of motion, no pitting or edema. No cyanosis. NEUROLOGICAL: No focal neurological deficits. Moves all extremities spontaneously and on command. PSYCH: Normal mood, normal affect. SKIN: Warm, Dry, normal turgor, no rashes or lesions noted. Course - Re-evaluation Re-evalutation: 05/02/20 23:21 Rounded on patient and updated her about her CT results. She continues to have pain and nausea with dry heaving. Have ordered her more pain medicines. Will continue to monitor her. Progress: Patient has improved significantly since the last round of antiemetics and pain control. We will plan for discharge. Suspect that this is pyelonephritis. Will send home with antibiotics, pain medicine, antiemetics. She is to return immediately if she has worsening pain, intractable nausea vomiting and unable to keep down her medicines, or any other concerns. She and her significant other who is bedside agree with the plan. - Vital Signs Vital signs: Temp Pulse Resp BP Pulse Ox 98.2 F 48 L 14 99/60 L 99 05/03/20 01:04 05/03/20 01:04 05/03/20 01:04 05/03/20 01:04 05/03/20 01:04 - Laboratory Result Diagrams: 05/02/20 18:08 05/02/20 18:08 Laboratory results interpreted by me: 05/02/20 18:00 Urine Protein 30 H Urine Ketones TRACE H Urine Blood MODERATE H Ur Leukocyte Esterase LARGE H - Diagnostic Test Radiology reviewed: Image reviewed, Reports reviewed Discharge - Discharge Clinical Impression: Pyelonephritis Nausea & vomiting Qualifiers: Vomiting type: unspecified Vomiting Intractability: non-intractable Qualified Code(s): R11.2 - Nausea with vomiting, unspecified Condition: Stable Disposition: HOME, SELF-CARE Instructions: Pyelonephritis (OM) Additional Instructions: Complete all antibiotics. Push fluids. Please follow-up with primary care clinic. Please return immediately if you have worsening pain, intractable vomiting, or any other worsening symptoms. Prescriptions: Ciprofloxacin HCl [Cipro 500 mg Tablet] 500 mg PO BID 14 Days #7 tablet Hydrocodone/Acetaminophen [[place] 5-325 mg Tablet] 1 tab PO Q6H #12 tablet Promethazine HCl [Phenergan 25 mg Tablet] 1 tab PO Q6H PRN #15 tablet PRN Reason: Forms: Return to Work Referrals: [facility] [Provider Group] - Follow up as needed
[2020-05-02] MEDS ORDERED: KETOROLAC TROMETHAMINE INJ/PF 30 MG/1 ML SDV IV ONE (21:23)
[2020-05-02] MEDS ORDERED: CEFTRIAXONE 1 GM/D5W RTU 1 GM/50 ML RTUPB IV ONE (21:23)
--- NOTE | 2020-05-02 22:25 | RADIOLOGY REPORT (SQ) ---
EXAM DESCRIPTION: CT ABDOMEN PELVIS WITHOUT IV CONTRAST COMPLETED DATE/TME: 05/02/2020 21:43 EXAM: CT ABD/PELVIS NO ORAL OR IV CLINICAL INDICATION: 29-year-old female with flank pain. Nephrolithiasis versus pyelonephritis. COMPARISON: None. EXAMINATION: CT of the abdomen and pelvis was performed without intravenous or oral contrast. Multiplanar reformatted images were provided. This exam was performed according to our departmental dose optimization program which includes use of automated exposure control, adjustment of the mA and/or kV according to patient size and/or use of iterative reconstruction technique. FINDINGS: Evaluation of solid organ pathology is limited secondary to lack of intravenous contrast. Within these limitations, the following observations are made. Chest: Evaluation through the lung bases reveals no focal opacity, pleural effusion or pneumothorax. Heart size is within normal limits. No pericardial effusion. Abdomen and pelvis: The liver, gallbladder, pancreas, spleen, bilateral kidneys and bilateral adrenal glands are within normal limits. The vessels are normal in caliber. No abdominopelvic lymph nodes are noted to be pathologically enlarged by CT measurement criteria. The bowel is within normal limits without abnormal bowel wall thickness or bowel dilation. No free air. No free abdominopelvic fluid collections. The appendix is within normal limits. Thickened appearance of the bladder wall may be secondary to incomplete distention, however can be seen in the setting of infectious or inflammatory process. Please correlate with laboratory values. The osseous structures are within normal limits. IMPRESSION: 1. Thickened appearance of the bladder wall may be secondary to incomplete distention, however can be seen in the setting of infectious or inflammatory process. Please correlate with laboratory values. 2. No hydronephrosis, hydroureter or nephrolithiasis. The possibility of pyelonephritis cannot be excluded on a noncontrast CT examination.
[2020-05-02] MEDS ORDERED: MORPHINE SULFATE 10 MG/ML INJ IV ONE (23:16)
[2020-05-02] MEDS ORDERED: DIPHENHYDRAMINE HCL 50 MG/ML VIAL IV ONE (23:16)
[2020-05-02] MEDS ORDERED: METOCLOPRAMIDE HCL INJ/PF 10 MG/2 ML SDV IV ONE (23:16)
[2020-05-03 01:05] VITALS: BP 99/60
== END 2020-05-03 01:05 | disposition home or self-care (01) ==
LOC: ER 17:11
DX: N12 Tubulo-interstitial nephritis, not specified as acute or chronic (principal); K58.0 Irritable bowel syndrome with diarrhea; R11.2 Nausea with vomiting, unspecified; R10.84 Generalized abdominal pain; R10.817 Generalized abdominal tenderness; Z91.040 Latex allergy status; Z88.0 Allergy status to penicillin; Z88.2 Allergy status to sulfonamides
CPT/HCPCS: 99285; 96361; 96375; 96365; 36415; 87086; 83690; 84703; 85025; 87088; 80053; 81001; 87186; 74176; J1200; J1885; J2765; J2270; J2405; J7120; J0696

== ENCOUNTER 2020-05-12 09:06 | Emergency (ER) | payer SELFPAY ==
[2020-05-12 10:20] LABS: APPEARANCE,URINE SLIGHTLY-CLOUDY; BILIRUBIN,URINE NEGATIVE (NEGATIVE); COLOR,URINE YELLOW; GLUCOSE, URINE NEGATIVE (NEGATIVE); KETONES,URINE NEGATIVE (NEGATIVE); LEUKOCYTE ESTERASE,URINE NEGATIVE (NEGATIVE); NITRITE,URINE NEGATIVE (NEGATIVE); PROTEIN,URINE NEGATIVE (NEGATIVE); URINE SPECIFIC GRAVITY 1.012; UROBILINOGEN,URINE NEGATIVE mg/dL (<2.0)
--- NOTE | 2020-05-12 10:57 | ER Document Report ---
ED GI/ - General Chief Complaint: Abdominal Pain Stated Complaint: VAGINAL INFECTION/ RETURN Time Seen by Provider: 05/12/20 10:27 Primary Care Provider: SRUTHI KOEHLER [Primary Care Provider] - Follow up as needed Notes: HPI: 29-year-old female who presents today with some persistent lower abdominal discomfort. She states she has had this for 3 weeks. No real aggravating relieving factors. No radiation. She denies missing any menstrual periods. She denies any vaginal bleeding or discharge. She has had vomiting x2. She does have some pain with urination. Patient has had a CT scan of the abdomen and pelvis which just showed some bladder thickening as well as the possibility of urinary tract infection which is she is being treated for. ROS: See HPI All other review of systems reviewed and otherwise negative Reviewed vital signs and nursing note as charted by RN. PHYSICAL EXAM: CONSTITUTIONAL: Alert and oriented and responds appropriately to questions. Well-appearing; well-nourished HEAD: Normocephalic; atraumatic EYES: PERRL; Conjunctivae clear, sclerae non-icteric ENT: Normal nose; no rhinorrhea; moist mucous membranes; pharynx without lesions noted NECK: Supple without meningismus; non-tender; no cervical lymphadenopathy, no masses CARD: Regular rate and rhythm; no murmurs; symmetric distal pulses RESP: Normal chest excursion without splinting or tachypnea; breath sounds clear and equal bilaterally; no wheezes, no rhonchi, no rales ABD/GI: Normal bowel sounds; non-distended; soft, tenderness to palpation of the suprapubic region and bilateral lower quadrants. No palpable masses, rebound or guarding old scar present BACK: The back appears normal and is non-tender to palpation EXT: Normal ROM in all joints; non-tender to palpation; no edema SKIN: No acute lesions noted NEURO: CN 2-12 intact; 5/5 bilateral upper and lower extremity strength with sensation intact to light touch PSYCH: The patient's mood and manner are appropriate. Grooming and personal hygiene are appropriate. TRAVEL OUTSIDE OF THE [place] IN LAST 30 DAYS: No - Related Data Allergies/Adverse Reactions: latex [Latex] Allergy (Severe, Verified 05/12/20 09:34) Severe swelling amoxicillin Allergy (Verified 05/12/20 09:34) Sulfa (Sulfonamide Antibiotics) Allergy (Verified 05/12/20 09:34) Past Medical History - Social History Smoking Status: Never Smoker Chew tobacco use (# tins/day): No Frequency of alcohol use: None Drug Abuse: None Family History: Arthritis, Malignancy, DM, Hyperlipidemia, Hypertension Patient has homicidal ideation: No - Past Medical History Cardiac Medical History: Denies: Hx Coronary Artery Disease, Hx Heart Attack, Hx Hypertension Pulmonary Medical History: Reports: Hx Bronchitis - 05/2011 Denies: Hx Asthma, Hx COPD, Hx Pneumonia Neurological Medical History: Denies: Hx Cerebrovascular Accident, Hx Seizures Renal/ Medical History: Denies: Hx Kidney Stones, Hx Ovarian Cysts, Hx Peritoneal Dialysis, Hx Pelvic Inflammatory Disease Malignancy Medical History: Denies: Hx Breast Cancer, Hx Cervical Cancer, Hx Ovarian Cancer GI Medical History: Reports: Hx Gastroesophageal Reflux Disease, Hx Irritable Bowel. Denies: Hx Hiatal Hernia, Hx Ulcer Musculoskeletal Medical History: Denies Hx Arthritis Psychiatric Medical History: Reports: Hx Anxiety, Hx Attention Deficit Hy peractivity Disorder Denies: Hx Bipolar Disorder, Hx Depression, Hx Post Traumatic Stress Disorder, Hx Schizophrenia Past Surgical History: Reports: Hx Section - x2, Hx Myringotomy, Hx Tonsillectomy - Immunizations Immunizations up to date: Yes Hx Diphtheria, Pertussis, Tetanus Vaccination: Yes - 08/20/09 Physical Exam - Vital signs Vitals: Temp Pulse Resp BP Pulse Ox 98.4 F 72 16 116/58 L 99 05/12/20 09:20 05/12/20 09:20 05/12/20 09:20 05/12/20 09:20 05/12/20 09:20 Course - Re-evaluation Re-evalutation: 05/12/20 10:56 I have reviewed the patient's previous charting. It does appear that the patient had a CT scan as well as a pelvic exam performed. Urine analysis and culture as recorded. CT scan results as recorded. Patient has never had a transvaginal ultrasound. We will repeat the patient's urine analysis and test as well as basic labs and provide pain and nausea medications and reassess the abdomen and perform a transvaginal ultrasound for further assessment of the patient's ovaries. 05/12/20 13:17 Imaging and labs as recorded. Vital signs are stable. Ultrasound as recorded. Urinalysis as recorded. Urine culture has again been sent. On discharge the patient was placed on doxycycline and given Phenergan. Chlamydia is negative. I would discontinue the doxycycline and from the previous culture results start the patient on Bactrim with a dose of Diflucan at discharge. - Vital Signs Vital signs: Temp Pulse Resp BP Pulse Ox 98.7 F 70 17 118/62 99 05/12/20 12:11 05/12/20 12:11 05/12/20 12:11 05/12/20 12:11 05/12/20 12:11 - Laboratory Results Result Diagrams: 05/12/20 11:45 05/12/20 11:45 Laboratory Results Interpreted: 05/12/20 11:45 MCH 34.4 H Critical Laboratory Results Reviewed: No Critical Results - Radiology Results Critical Radiology Results Reviewed: No Critical Results Discharge - Discharge Clinical Impression: Pelvic pain Condition: Good Disposition: HOME, SELF-CARE Additional Instructions: Come back immediately for any increased pain, fever, vomiting, change in location or quality of pain, or any other acute problems. Please follow-up with the primary care physician as discussed. You may discontinue the doxycycline but please start the new antibiotic we have prescribed. You can take the second and final dose of Diflucan after finishing the antibiotic next week. Prescriptions: Fluconazole [Diflucan] 150 mg PO ONCE PRN #1 tablet PRN Reason: Nitrofurantoin Monohyd/M-Cryst [Macrobid 100 mg Capsule] 100 mg PO BID #14 cap Referrals: LOCALMD,NO [Primary Care Provider] - Follow up as needed
[2020-05-12] MEDS ORDERED: NORMAL SALINE 1000 ML 1,000 ML IV ONE (11:32)
[2020-05-12] MEDS ORDERED: MORPHINE SULFATE 10 MG/ML INJ IV ONE (11:33)
[2020-05-12] MEDS ORDERED: ONDANSETRON HCL INJ/PF 4 MG/2 ML SDV IV ONE (11:33)
--- NOTE | 2020-05-12 11:50 | RADIOLOGY REPORT (SQ) ---
EXAM DESCRIPTION: U/S NON OB PEL TV W/DOPPLER IMAGES COMPLETED DATE/TIME: 05/12/2020 11:20 am REASON FOR STUDY: 17; pelvic pain; third visit COMPARISON: None. TECHNIQUE: Dynamic and static grayscale images acquired of the pelvis via transvaginal approach and recorded on PACS. Additional selected color Doppler and spectral images recorded. LIMITATIONS: None. FINDINGS: UTERUS: Contour normal. No mass. ENDOMETRIAL STRIPE: No focal or generalized thickening. No masses. CERVIX: No nabothian cysts. RIGHT OVARY AND DOPPLER: Normal size. No worrisome masses. Normal arterial vascular flow without evid ence for torsion. LEFT OVARY AND DOPPLER: Normal size. No worrisome masses. Normal arterial vascular flow without evide nce for torsion. FREE FLUID: None noted. OTHER: No other significant finding. IMPRESSION: Normal. TECHNICAL DOCUMENTATION: JOB ID: [id number] 2010 [employer]- All Rights Reserved Rev Reading location - IP/workstation name: [email or web address]
[2020-05-12 11:59] LABS: ABSOLUTE LYMPHOCYTES (AUTO) 1.6 10^3/uL (0.5-4.7); ABSOLUTE MONOCYTES (AUTO) 0.3 10^3/uL (0.1-1.4); ABSOLUTE NEUT (AUTO) 5.7 10^3/uL (1.7-8.2); BASOPHILS % (AUTO) 0.2 % (0-2); EOSINOPHILS % (AUTO) 0.3 % (0-6); HEMATOCRIT 40.2 % (36.0-47.0); HEMOGLOBIN 14.2 g/dL (12.0-15.5); LYMPHOCYTES % (AUTO) 21.3 % (13-45); MEAN CORPUSCULAR HEMOGLOBIN 34.4 pg (27.0-33.4); MEAN CORPUSCULAR HGB CONC 35.4 g/dL (32.0-36.0); MEAN CORPUSCULAR VOLUME 97 fl (80-97); MONOCYTES % (AUTO) 3.7 % (3-13); PLATELET COUNT 206 10^3/uL (150-450); RED BLOOD COUNT 4.14 10^6/uL (3.72-5.28); RED CELL DISTRIBUTION WIDTH 11.7 % (11.5-14.0); SEGMENTED NEUTROPHILS % (AUTO) 74.5 % (42-78); TOTAL CELLS COUNTED % (AUTO) 100 %; WHITE BLOOD COUNT 7.6 10^3/uL (4.0-10.5)
[2020-05-12 12:11] VITALS: BP 118/62
[2020-05-12 12:32] LABS: ANION GAP 5 (5-19); BLOOD UREA NITROGEN 8 mg/dL (7-20); CALCIUM 9.4 mg/dL (8.4-10.2); CARBON DIOXIDE 29 mmol/L (22-30); CHLORIDE 105 mmol/L (98-107); GLUCOSE 88 mg/dL (75-110); POTASSIUM 4.2 mmol/L (3.6-5.0)
[2020-05-12] MEDS ORDERED: FLUCONAZOLE 100 MG TABLET PO ONE (13:16)
[2020-05-12] MEDS ORDERED: CEFTRIAXONE 1 GM/D5W RTU 1 GM/50 ML RTUPB IV ONE (13:16)
== END 2020-05-12 14:12 | disposition home or self-care (01) ==
LOC: ER 09:06
DX: R10.2 Pelvic and perineal pain (principal); R10.30 Lower abdominal pain, unspecified; R30.0 Dysuria; Z91.040 Latex allergy status; Z88.2 Allergy status to sulfonamides; Z88.0 Allergy status to penicillin
CPT/HCPCS: 99285; 96361; 96375; 96365; 36415; 87086; 85025; 87088; 80048; 81001; 76830; 93976; J2270; J2405; J7030; J0696; 87186

== ENCOUNTER 2020-05-17 10:21 | Emergency (ER) | payer SELFPAY ==
[2020-05-17] MEDS ORDERED: ONDANSETRON HCL INJ/PF 4 MG/2 ML SDV IV ONE (10:50)
[2020-05-17] MEDS ORDERED: NORMAL SALINE 1000 ML 1,000 ML IV ONE (10:50)
--- NOTE | 2020-05-17 10:52 | ER Document Report ---
ED Medical Screen (RME) - General Chief Complaint: Lower Abdominal Pain Stated Complaint: ABDOMINAL PAIN Time Seen by Provider: 05/17/20 10:48 Primary Care Provider: SRUTHI KOEHLER [Primary Care Provider] - Follow up as needed Notes: Patient presents complaining of lower pelvic pain for the past 4 weeks. Patient states pain does radiate to the lower back area. Patient reports urinary frequency and dysuria. Patient does report starting her menstrual cycle recently. Patient reports this is her fourth visit to the ER this month for this complaint. Patient denies any fever or diarrhea. Patient does report nausea vomiting x4 episodes today. Patient with a history of IBS and previous . Patient states that her initial visit she was diagnosed with a kidney infection and then later diagnosed with a pelvic infection and yeast infection. Patient denies any improvement with taking her Macrobid for her UTI. I have greeted and performed a rapid initial assessment of this patient. A comprehensive ED assessment and evaluation of the patient, analysis of test results and completion of the medical decision making process will be conducted by additional ED providers. TRAVEL OUTSIDE OF THE [place] IN LAST 30 DAYS: No - Related Data Allergies/Adverse Reactions: latex [Latex] Allergy (Severe, Verified 05/17/20 10:50) Severe swelling amoxicillin Allergy (Verified 05/17/20 10:50) Sulfa (Sulfonamide Antibiotics) Allergy (Verified 05/17/20 10:50) Home Medications: atb Past Medical History - Social History Chew tobacco use (# tins/day): No Frequency of alcohol use: None Drug Abuse: None Family history: Arthritis, Malignancy, DM, Hyperlipidemia, Hypertension - Past Medical History Cardiac Medical History: Denies: Hx Coronary Artery Disease, Hx Heart Attack, Hx Hypertension Pulmonary Medical History: Reports: Hx Bronchitis - 05/2011 Denies: Hx Asthma, Hx COPD, Hx Pneumonia Neurological Medical History: Denies: Hx Cerebrovascular Accident, Hx Seizures Renal/ Medical History: Denies: Hx Kidney Stones, Hx Ovarian Cysts, Hx Peritoneal Dialysis, Hx Pelvic Inflammatory Disease Malignancy Medical History: Denies: Hx Breast Cancer, Hx Cervical Cancer, Hx Ovarian Cancer GI Medical History: Reports: Hx Gastroesophageal Reflux Disease, Hx Irritable Bowel. Denies: Hx Hiatal Hernia, Hx Ulcer Musculoskeltal Medical History: Denies Hx Arthritis Psychiatric Medical History: Reports: Hx Anxiety, Hx Attention Deficit Hyperactivity Disorder Denies: Hx Bipolar Disorder, Hx Depression, Hx Post Traumatic Stress Disorder, Hx Schizophrenia Past Surgical History: Reports: Hx Section - x2, Hx Myringotomy, Hx Tonsillectomy - Immunizations Immunizations up to date: Yes Hx Diphtheria, Pertussis, Tetanus Vaccination: Yes - 08/20/09 Physical Exam - Vital signs Vitals: Temp 97.9 F 05/17/20 10:45 - Abdominal Tenderness: Tender - Lower pelvic, exam limited as patient is in chair Course - Vital Signs Vital signs: Temp Pulse Resp BP Pulse Ox 97.9 F 05/17/20 10:45 Doctor's Discharge - Discharge Referrals: LOCAL[facility],NO [Primary Care Provider] - Follow up as needed
--- NOTE | 2020-05-17 11:12 | ER Document Report ---
ED GI/ - General Chief Complaint: Lower Abdominal Pain Stated Complaint: ABDOMINAL PAIN Time Seen by Provider: 05/17/20 10:48 Primary Care Provider: SRUTHI KOEHLER [Primary Care Provider] - Follow up as needed Mode of Arrival: Ambulatory Information source: Patient Notes: PRIOR ED VISIT on [address] KUMAR)Notes: HPI: 29-year-old female who presents today with some persistent lower abdominal discomfort. She states she has had this for 3 weeks. No real aggravating relieving factors. No radiation. She denies missing any menstrual periods. She denies any vaginal bleeding or discharge. She has had vomiting x2. She does have some pain with urination. Patient has had a CT scan of the abdomen and pelvis which just showed some bladder thickening as well as the possibility of urinary tract infection which is she is being treated for. ROS: See HPI All other review of systems reviewed and otherwise negative Reviewed vital signs and nursing note as charted by RN. PHYSICAL EXAM: CONSTITUTIONAL: Alert and oriented and responds appropriately to questions. Well-appearing; well-nourished HEAD: Normocephalic; atraumatic EYES: PERRL; Conjunctivae clear, sclerae non-icteric ENT: Normal nose; no rhinorrhea; moist mucous membranes; pharynx without lesions noted NECK: Supple without meningismus; non-tender; no cervical lymphadenopathy, no masses CARD: Regular rate and rhythm; no murmurs; symmetric distal pulses RESP: Normal chest excursion without splinting or tachypnea; breath sounds clear and equal bilaterally; no wheezes, no rhonchi, no rales ABD/GI: Normal bowel sounds; non-distended; soft, tenderness to palpation of the suprapubic region and bilateral lower quadrants. No palpable masses, rebound or guarding old scar present BACK: The back appears normal and is non-tender to palpation EXT: Normal ROM in all joints; non-tender to palpation; no edema SKIN: No acute lesions noted NEURO: CN 2-12 intact; 5/5 bilateral upper and lower extremity strength with sensation intact to light touch PSYCH: The patient's mood and manner are appropriate. Grooming and personal hygiene are appropriate. TRAVEL OUTSIDE OF THE [place] IN LAST 30 DAYS: No - Related Data Allergies/Adverse Reactions: latex [Latex] Allergy (Severe, Verified 05/12/20 09:34) Severe swelling amoxicillin Allergy (Verified 05/12/20 09:34) Sulfa (Sulfonamide Antibiotics) Allergy (Verified 05/12/20 09:34) 05/17/20 10:45 - [id number] : 1990 Patient Age: 29 pt reports this is the 4th time she has been back in the past 3 weeks. states she has been placed on several atb. states lower abdominal pain. burning with urination. reports increase in frequency. states just started menses 2 days ago. states she has been treated for kidney infection. pelvic infection, 3rd time luis enrique ann was told uti. states she is still taking atb. reports she is having some n/v. states vomit x 4 today. denies diarrhea. ED Medical Screen (Maurizio notes) - General Chief Complaint: Lower Abdominal Pain Stated Complaint: ABDOMINAL PAIN Time Seen by Provider: 05/17/20 10:48 Primary Care Provider: SRUTHI KOEHLER [Primary Care Provider] - Follow up as needed Notes: Patient presents complaining of lower pelvic pain for the past 4 weeks. Patient states pain does radiate to the lower back area. Patient reports urinary frequency and dysuria. Patient does report starting her menstrual cycle recently. Patient reports this is her fourth visit to the ER this month for this complaint. Patient denies any fever or diarrhea. Patient does report nausea vomiting x4 episodes today. Patient with a history of IBS and previous . Patient states that her initial visit she was diagnosed with a kidney infection and then later diagnosed with a pelvic infection and yeast infection. Patient denies any improvement with taking her Macrobid for her UTI. MY NOTES 29-year-old female arrives by POV with her boyfriend who is currently changing the laundry but will be back soon. Patient works for [employer] here in town and needs a work note. She continues to have suprapubic pain and nausea and vomiting. She has been on Macrobid now for more than 1 week. I suspect the Macrobid is causing the nausea and vomiting and belly pain. Her labs are within normal limits except for hyaline casts in urine; patient reports she has never taken Macrobid in the past and has taken Cipro without any problems. TRAVEL OUTSIDE OF THE [place] IN LAST 30 DAYS: No - Related Data Allergies/Adverse Reactions: latex [Latex] Allergy (Severe, Verified 05/17/20 10:50) Severe swelling amoxicillin Allergy (Verified 05/17/20 10:50) Sulfa (Sulfonamide Antibiotics) Allergy (Verified 05/17/20 10:50) Home Medications: atb Past Medical History - General Information source: Patient - Social History Smoking Status: Unknown if Ever Smoked Cigarette use (# per day): No Chew tobacco use (# tins/day): No Smoking Education Provided: No Frequency of alcohol use: None Drug Abuse: None Family History: Arthritis, Malignancy, DM, Hyperlipidemia, Hypertension Patient has suicidal ideation: No Patient has homicidal ideation: No - Past Medical History Cardiac Medical History: Denies: Hx Coronary Artery Disease, Hx Heart Attack, Hx Hypertension Pulmonary Medical History: Reports: Hx Bronchitis - 05/2011 Denies: Hx Asthma, Hx COPD, Hx Pneumonia Neurological Medical History: Denies: Hx Cerebrovascular Accident, Hx Seizures Renal/ Medical History: Denies: Hx Kidney Stones, Hx Ovarian Cysts, Hx Peritoneal Dialysis, Hx Pelvic Inflammatory Disease Malignancy Medical History: Denies: Hx Breast Cancer, Hx Cervical Cancer, Hx Ovarian Cancer GI Medical History: Reports: Hx Gastroesophageal Reflux Disease, Hx Irritable Bowel. Denies: Hx Hiatal Hernia, Hx Ulcer Musculoskeletal Medical History: Denies Hx Arthritis Psychiatric Medical History: Reports: Hx Anxiety, Hx Attention Deficit Hyperactivity Disorder Denies: Hx Bipolar Disorder, Hx Depression, Hx Post Traumatic Stress Disorder, Hx Schizophrenia Past Surgical History: Reports: Hx Section - x2, Hx Myringotomy, Hx Ton sillectomy - Immunizations Immunizations up to date: Yes Hx Diphtheria, Pertussis, Tetanus Vaccination: Yes - 08/20/09 Review of Systems - Review of Systems Constitutional: See HPI, Weakness, Recent illness EENT: No symptoms reported Cardiovascular: No symptoms reported Respiratory: No symptoms reported Gastrointestinal: No symptoms reported Genitourinary: No symptoms reported Female Genitourinary: No symptoms reported Musculoskeletal: No symptoms reported Skin: No symptoms reported Hematologic/Lymphatic: No symptoms reported Neurological/Psychological: No symptoms reported Physical Exam - Vital signs Vitals: Temp 97.9 F 05/17/20 10:45 Interpretation: Normal - General General appearance: Appears well, Alert - HEENT Head: Normocephalic, Atraumatic Eyes: Normal Pupils: PERRL - Respiratory Respiratory status: No respiratory distress Chest status: Nontender Breath sounds: Normal Chest palpation: Normal - Cardiovascular Rhythm: Regular Heart sounds: Normal auscultation Murmur: No - Abdominal Inspection: Normal Distension: No distension Bowel sounds: Normal Tenderness: Tender - Tender around suprapubic area nontender CVA bilaterally Organomegaly: No organomegaly - Rectal Hemorrhoids: Other - Deferred - Genitourinary Bimanuel exam: Other - Deferred - Back Back: Normal, Nontender - Extremities General upper extremity: Normal inspection, Nontender, Normal color, Normal ROM, Normal temperature General lower extremity: Normal inspection, Nontender, Normal color, Normal ROM, Normal temperature, Normal weight bearing. No: Sydnie's sign - Neurological Neuro grossly intact: Yes Cognition: Normal Orientation: AAOx4 [place] Coma Scale Eye Opening: Spontaneous Caitie Coma Scale Verbal: Oriented Caitie Coma Scale Motor: Obeys Commands Caitie Coma Scale Total: 15 Speech: Normal Motor strength normal: LUE, RUE, LLE, RLE Sensory: Normal - Psychological Associated symptoms: Normal affect, Normal mood - Skin Skin Temperature: Warm Skin Moisture: Dry Skin Color: Normal Course - Vital Signs Vital signs: Temp Pulse Resp BP Pulse Ox 97.9 F 05/17/20 10:45 - Laboratory Results Result Diagrams: 05/17/20 11:02 05/17/20 11:02 Laboratory Results Interpreted: 05/17/20 11:02 Urine Protein 30 H Urine Urobilinogen 4.0 H Critical Laboratory Results Reviewed: Yes Attending or Supervising Physician who Reviewed Labs: ZENIA COHEN JR - Radiology Results Critical Radiology Results Reviewed: No Critical Results Attending or Supervising Physician who Reviewed Radiology: ZENIA COHEN JR Discharge - Discharge Clinical Impression: Medication side effect, Casts urinary hyaline Nausea & vomiting Qualifiers: Vomiting type: unspecified Vomiting Intractability: unspecified Qualified Code(s): R11.2 - Nausea with vomiting, unspecified Condition: Stable Disposition: HOME, SELF-CARE Instructions: Abdominal Pain ([facility]), Antinausea Medication ([facility]), Vomiting ([facility]) Additional Instructions: Off work as directed; encourage fluids like water or diluted cranberry juice and avoid carbonated drinks like sodas Pepsi Coca-Cola Dr. Drea MontelongoPibb .; Hold taking the Macrobid and this has been known to cause nausea vomiting abdominal pain and many people. Take instead your Cipro tablets twice a day for 3 days. You may have to follow-up with urologist or [employer] doctor in case you have inte rstitial cystitis but wait at least 1 week on your current medications. Prescriptions: Ciprofloxacin HCl [Cipro 500 mg Tablet] 500 mg PO BID #20 tablet Etodolac [Lodine] 400 mg PO DAILY #5 tablet Promethazine HCl [Phenergan 25 mg Tablet] 1 - 2 tab PO Q6H PRN #15 tablet PRN Reason: Forms: Return to Work Referrals: LOCALMD,NO [Primary Care Provider] - Follow up as needed
[2020-05-17 11:35] LABS: ABSOLUTE LYMPHOCYTES (AUTO) 1.1 10^3/uL (0.5-4.7); ABSOLUTE MONOCYTES (AUTO) 0.3 10^3/uL (0.1-1.4); ABSOLUTE NEUT (AUTO) 4.2 10^3/uL (1.7-8.2); BASOPHILS % (AUTO) 0.3 % (0-2); EOSINOPHILS % (AUTO) 0.7 % (0-6); HEMATOCRIT 42.3 % (36.0-47.0); HEMOGLOBIN 14.2 g/dL (12.0-15.5); LYMPHOCYTES % (AUTO) 18.9 % (13-45); MEAN CORPUSCULAR HEMOGLOBIN 32.5 pg (27.0-33.4); MEAN CORPUSCULAR HGB CONC 33.5 g/dL (32.0-36.0); MEAN CORPUSCULAR VOLUME 97 fl (80-97); MONOCYTES % (AUTO) 4.8 % (3-13); PLATELET COUNT 245 10^3/uL (150-450); RED BLOOD COUNT 4.35 10^6/uL (3.72-5.28); RED CELL DISTRIBUTION WIDTH 11.8 % (11.5-14.0); SEGMENTED NEUTROPHILS % (AUTO) 75.3 % (42-78); TOTAL CELLS COUNTED % (AUTO) 100 %; WHITE BLOOD COUNT 5.6 10^3/uL (4.0-10.5)
[2020-05-17 11:41] LABS: APPEARANCE,URINE SLIGHTLY-CLOUDY; BILIRUBIN,URINE NEGATIVE (NEGATIVE); COLOR,URINE AMBER; GLUCOSE, URINE NEGATIVE (NEGATIVE); KETONES,URINE NEGATIVE (NEGATIVE); LEUKOCYTE ESTERASE,URINE NEGATIVE (NEGATIVE); NITRITE,URINE NEGATIVE (NEGATIVE); PROTEIN,URINE 30 mg/dL (NEGATIVE); URINE SPECIFIC GRAVITY 1.027
[2020-05-17 11:54] LABS: ALBUMIN 4.4 g/dL (3.5-5.0); ALKALINE PHOSPHATASE 40 U/L (38-126); ANION GAP 8 (5-19); ASPARTATE AMINO TRANSFERASE 25 U/L (14-36); BILIRUBIN,DIRECT 0.2 mg/dL (0.0-0.4); BILIRUBIN,TOTAL 0.7 mg/dL (0.2-1.3); BLOOD UREA NITROGEN 8 mg/dL (7-20); CALCIUM 9.8 mg/dL (8.4-10.2); CARBON DIOXIDE 30 mmol/L (22-30); CHLORIDE 105 mmol/L (98-107); GLUCOSE 95 mg/dL (75-110); POTASSIUM 4.6 mmol/L (3.6-5.0); TOTAL PROTEIN 7.3 g/dL (6.3-8.2)
[2020-05-17] MEDS ORDERED: DEXAMETHASONE SOD PHOS INJ 10 MG/1 ML VIAL IV ONE (12:15)
[2020-05-17] MEDS ORDERED: KETOROLAC TROMETHAMINE INJ/PF 30 MG/1 ML SDV IV ONE (12:15)
[2020-05-17 12:38] VITALS: BP 102/52
== END 2020-05-17 12:40 | disposition home or self-care (01) ==
LOC: ER 10:21
DX: R82.998 Other abnormal findings in urine (principal); R10.30 Lower abdominal pain, unspecified; T37.8X5A Adverse effect of other specified systemic anti-infectives and antiparasitics, initial encounter; R11.2 Nausea with vomiting, unspecified; R30.0 Dysuria; Z91.040 Latex allergy status
CPT/HCPCS: 99284; 96361; 96374; 96375; 36415; 87086; 84703; 85025; 80053; 81001; J1885; J2405; J7030; J1100

== ENCOUNTER 2020-05-28 07:34 | Emergency (ER) | payer MEDICAID ==
[2020-05-28 10:28] LABS: ABSOLUTE LYMPHOCYTES (AUTO) 1.7 10^3/uL (0.5-4.7); ABSOLUTE MONOCYTES (AUTO) 0.5 10^3/uL (0.1-1.4); ABSOLUTE NEUT (AUTO) 5.2 10^3/uL (1.7-8.2); BASOPHILS % (AUTO) 0.2 % (0-2); EOSINOPHILS % (AUTO) 0.6 % (0-6); HEMATOCRIT 38.2 % (36.0-47.0); HEMOGLOBIN 13.5 g/dL (12.0-15.5); LYMPHOCYTES % (AUTO) 22.5 % (13-45); MEAN CORPUSCULAR HEMOGLOBIN 33.5 pg (27.0-33.4); MEAN CORPUSCULAR HGB CONC 35.4 g/dL (32.0-36.0); MEAN CORPUSCULAR VOLUME 95 fl (80-97); MONOCYTES % (AUTO) 6.5 % (3-13); PLATELET COUNT 230 10^3/uL (150-450); RED BLOOD COUNT 4.03 10^6/uL (3.72-5.28); RED CELL DISTRIBUTION WIDTH 11.6 % (11.5-14.0); SEGMENTED NEUTROPHILS % (AUTO) 70.2 % (42-78); TOTAL CELLS COUNTED % (AUTO) 100 %; WHITE BLOOD COUNT 7.5 10^3/uL (4.0-10.5)
[2020-05-28 10:45] LABS: BLOOD UREA NITROGEN 9 mg/dL (7-20); CALCIUM 9.4 mg/dL (8.4-10.2); GLUCOSE 94 mg/dL (75-110)
[2020-05-28 10:46] LABS: ALBUMIN 3.9 g/dL (3.5-5.0); ALKALINE PHOSPHATASE 48 U/L (38-126); ANION GAP 5 (5-19); ASPARTATE AMINO TRANSFERASE 22 U/L (14-36); BILIRUBIN,TOTAL 0.6 mg/dL (0.2-1.3); CARBON DIOXIDE 28 mmol/L (22-30); CHLORIDE 108 mmol/L (98-107); POTASSIUM 4.3 mmol/L (3.6-5.0); TOTAL PROTEIN 6.7 g/dL (6.3-8.2)
[2020-05-28 10:56] LABS: APPEARANCE,URINE CLEAR; COLOR,URINE YELLOW; GLUCOSE, URINE NEGATIVE (NEGATIVE)
[2020-05-28 10:57] LABS: BILIRUBIN,URINE NEGATIVE (NEGATIVE); KETONES,URINE NEGATIVE (NEGATIVE); LEUKOCYTE ESTERASE,URINE NEGATIVE (NEGATIVE); NITRITE,URINE NEGATIVE (NEGATIVE); PROTEIN,URINE NEGATIVE (NEGATIVE); URINE SPECIFIC GRAVITY 1.022; UROBILINOGEN,URINE NEGATIVE mg/dL (<2.0)
--- NOTE | 2020-05-28 13:24 | ER Document Report ---
ED General - General Chief Complaint: Nausea/Vomiting Stated Complaint: VOMITING,NAUSEA,ABDOMINAL PAIN TRAVEL OUTSIDE OF THE [place] IN LAST 30 DAYS: No - HPI Notes: Chief Complaint: Abdominal pain, nausea vomiting Historian: History obtained from patient HPI: This is a 29-year-old female presents to the ER complaint abdominal pain and nausea vomiting for the past couple days. She has been seen in the ER multiple times over the past couple months with the same complaint with reassuring work-ups. Patient says she does have IBS but this the symptoms are different. Patient says she is been on multiple rounds of antibiotics for suspected UTI and just completed Cipro yesterday. Denies any urinary symptoms currently. Patient says her bowel movements have been more solid and regular recently, she usually has loose stools with her IBS. Nausea vomiting usually occurs few hours after eating a meal. Pain occurs at that same time and usually is epigastric to right upper quadrant radiates into her back. She had a negati ve CT scan in the ER about 1 week ago. Does not believe she has had any ultrasounds or gallbladder evaluations in over a year she has been referred to GI but is awaiting until beginning of the year when her insurance starts to go there. She does not take NSAIDs or drink alcohol. She denies melena or bright red blood in her stools. No bright red blood or coffee-ground emesis. She denies fever, chills, chest pain, shortness of breath. She takes a PPI and antacids for her stomach symptoms but is not on any other medications to manage her IBS. Denies chest pain, shortness of breath, fever/chills, dysuria, vaginal discharge or rash. no treatments tried. ROS: Constitutional: no fevers. HEENT: no VAIL, sore throat, or vision changes. CV: no chest pain or palpitations. Resp: no cough or SOB. GI: abdom pain and n/v. : no dysuria, hematuria, or incont. MSK: no back pain, no joint swelling/redness. Skin: no rashes or itching. Neuro: no seizures, weakness, numbness, or confusion. Hematological: no ecchymosis or easy bleeding. Endocrine: no polyuria/polydipsia, no heat/cold intolerance. Psych: no SI/HI, AH/VH or memory loss. PMHx: Reviewed and agree as charted by RN. PSHx: Reviewed and agree as charted by RN. SOCHx: Reviewed and agree as charted by RN. FHX: No significant familial comorbid conditions directly related to patient complaint Current Medications: Reviewed and agree with the patient medications as charted by the RN. Allergies: Reviewed and agree with the listed allergies as charted by the RN Physical Exam: Vitals: Reviewed in chart as documented by RN. General: Alert and in NAD. Head: Normocephalic; atraumatic Eyes: PERRLA, Conjunctivae clear sclerae non-icteric bilat ENT: no soft palate swelling or uvular deviation Neck: trachea midline, no unilateral swelling/tenderness/lymphadenopathy CV: RRR, no M/R/G; symmetric distal pulses Resp: respirations even and unlabored, CTA bilat. GI: abdomen soft. normal BS. no masses or hsm MSK: FROM of all extremities. No midline CTL spine tenderness/deformity Skin: warm, moist, good turgor. no rash/lesions Neuro: Alert and oriented X 4. following CN 2-12 intact. no unilateral weakness/numbness Psych: No SI/HI or AH/VH. ED Results: Medical Decision-Making: Medical Decision-making/Differential Diagnosis: Consider various etiologies including but not limited to PID, STD, ovarian cyst, ovarian torsion, abscess, IBS, inflamm bowel dz, ectopic preg, IUP, hyperemesis syndrome, Abdominal pain, Hernia, Acute Gastritis, Appendicitis, Partial or Complete small bowel obstruction, Cholecysitis, Diverticulitis, Gastroenteritis, GERD, Nephrolithiasis, Pancreatitis, Peptic Ulcer Disease, Urinary Tract Infection, Pyelonephritis, Infection, metabolic derangement, ect plan - Labs, urine, RUQ US, IV fluid hydration, morphine and phenergan- pt says this works best for her pain and nausea. a period of observation in the emergency department for frequent reassessments. This course of action was discussed with the patient and/or family. They were amenable to this, verbalized understanding, and were without further questions. - Related Data Allergies/Adverse Reactions: latex [Latex] Allergy (Severe, Verified 05/28/20 11:11) Severe swelling amoxicillin Allergy (Verified 05/28/20 11:11) Sulfa (Sulfonamide Antibiotics) Allergy (Verified 05/28/20 11:11) Past Medical History - Social History Smoking Status: Never Smoker Family History: Arthritis, Malignancy, DM, Hyperlipidemia, Hypertension - Past Medical History Cardiac Medical History: Denies: Hx Coronary Artery Disease, Hx Heart Attack, Hx Hypertension Pulmonary Medical History: Reports: Hx Bronchitis - 05/2011 Denies: Hx Asthma, Hx COPD, Hx Pneumonia Neurological Medical History: Denies: Hx Cerebrovascular Accident, Hx Seizures Renal/ Medical History: Denies: Hx Kidney Stones, Hx Ovarian Cysts, Hx Peritoneal Dialysis, Hx Pelvic Inflammatory Disease Malignancy Medical History: Denies: Hx Breast Cancer, Hx Cervical Cancer, Hx Ovarian Cancer GI Medical History: Reports: Hx Gastroesophageal Reflux Disease, Hx Irritable Bowel. Denies: Hx Hiatal Hernia, Hx Ulcer Musculoskeletal Medical History: Denies Hx Arthritis Psychiatric Medical History: Reports: Hx Anxiety, Hx Attention Deficit Hyperactivity Disorder Denies: Hx Bipolar Disorder, Hx Depression, Hx Post Traumatic Stress Disorder, Hx Schizophrenia Past Surgical History: Reports: Hx Section - x2, Hx Myringotomy, Hx Tonsillectomy - Immunizations Immunizations up to date: Yes Hx Diphtheria, Pertussis, Tetanus Vaccination: Yes - 08/20/09 Physical Exam - Vital signs Vitals: Temp Pulse Resp BP Pulse Ox 98.8 F 87 14 126/76 H 98 05/28/20 07:40 05/28/20 07:40 05/28/20 07:40 05/28/20 07:40 05/28/20 07:40 Course - Re-evaluation Re-evalutation: 05/28/20 15:25 Right upper quadrant ultrasound is negative. Labs and UA reviewed and negative will DC patient home. She has a GI referral for follow-up but she will use now that her insurance is starting May 29. Patient is nontoxic appearing in no acute distress. Return factors discussed. - Vital Signs Vital signs: Temp Pulse Resp BP Pulse Ox 98.8 F 87 14 126/76 H 98 05/28/20 07:40 05/28/20 07:40 05/28/20 07:40 05/28/20 07:40 05/28/20 07:40 - Laboratory Results Result Diagrams: 05/28/20 10:09 05/28/20 10:09 Laboratory Results Interpreted: 05/28/20 05/28/20 10:09 10:09 MCH 33.5 H Chloride 108 H Critical Laboratory Results Reviewed: No Critical Results - Radiology Results Critical Radiology Results Reviewed: No Critical Results Discharge - Discharge Clinical Impression: Abdominal pain Qualifiers: Abdominal location: unspecified location Qualified Code(s): R10.9 - Unspecified abdominal pain Nausea & vomiting Qualifiers: Vomiting type: unspecified Vomiting Intractability: non-intractable Qualified Code(s): R11.2 - Nausea with vomiting, unspecified Condition: Stable Disposition: HOME, SELF-CARE Additional Instructions: call GI an schedule and appointment for further evaluation and treatment. return to the ER if your condition worsens. Referrals: LATIA BARNES MD [ACTIVE STAFF] - Follow up as needed
[2020-05-28] MEDS ORDERED: MORPHINE SULFATE 10 MG/ML INJ IV PRN (14:04)
[2020-05-28] MEDS ORDERED: PROMETHAZINE HCL INJ 25 MG/1 ML VIAL IV ONE (14:05)
[2020-05-28] MEDS ORDERED: NORMAL SALINE 1000 ML 1,000 ML IV ONE (14:05)
--- NOTE | 2020-05-28 14:55 | RADIOLOGY REPORT (SQ) ---
EXAM DESCRIPTION: U/S ABDOMEN LIMITED W/O DOP IMAGES COMPLETED DATE/TIME: 05/28/2020 2:40 pm REASON FOR STUDY: ruq abdom pain, n/v COMPARISON: None. TECHNIQUE: Dynamic and static grayscale images acquired of the abdomen and recorded on PACS. Additio nal selected color Doppler and spectral images recorded. LIMITATIONS: None. FINDINGS: PANCREAS: No masses. Visualized pancreatic duct normal caliber. LIVER: No masses. Echotexture normal. LIVER VASCULATURE: Normal directional flow of the main portal vein and hepatic veins. GALLBLADDER: No stones. Normal wall thickness. No pericholecystic fluid. ULTRASOUND-DETECTED COREAS'S SIGN: Negative. INTRAHEPATIC DUCTS AND COMMON DUCT: CBD and intrahepatic ducts normal caliber. No filling defects. INFERIOR VENA CAVA: Normal flow. AORTA: No aneurysm. RIGHT KIDNEY: Normal size. Normal echogenicity. No solid or suspicious masses. No hydronephrosis. No calcifications. PERITONEAL AND RIGHT PLEURAL SPACE: No ascites or effusions. OTHER: No other significant findings. IMPRESSION: NORMAL RIGHT UPPER QUADRANT ULTRASOUND. TECHNICAL DOCUMENTATION: JOB ID: [id number] [employer]- All Rights Reserved Reading location - IP/workstation name: [email or web address]
[2020-05-28 15:45] VITALS: BP 110/57
== END 2020-05-28 15:47 | disposition home or self-care (01) ==
LOC: ER 07:34
DX: R10.11 Right upper quadrant pain (principal); R11.2 Nausea with vomiting, unspecified; K21.9 Gastro-esophageal reflux disease without esophagitis; Z79.899 Other long term (current) drug therapy; Z91.040 Latex allergy status; Z88.0 Allergy status to penicillin; Z88.2 Allergy status to sulfonamides
CPT/HCPCS: 99285; 96361; 96374; 96375; 36415; 83690; 85025; 81025; 80053; 81001; 76705; J2270; J2550; J7030

== ENCOUNTER → 2020-06-25 | Outpatient (CLI) | payer SELFPAY ==
[2020-06-25 16:36] LABS: C-REACTIVE PROTEIN < 5.0 mg/L (<10.0)
== END ==
LOC: OD 15:02
PROVIDERS: ATTEND Internal Medicine Gastroenterology
DX: R63.4 Abnormal weight loss (principal); R19.8 Other specified symptoms and signs involving the digestive system and abdomen; R10.10 Upper abdominal pain, unspecified
CPT/HCPCS: 36415; 82565; 86140